=== PATIENT | female | born 1950 | race Caucasian/White ===

== ENCOUNTER 2020-01-09 16:05 | Inpatient (IN) ==
[2020-01-09] MEDS ORDERED: Furosemide 40 MG TABLET PO PRN (16:47)
[2020-01-09] MEDS ORDERED: INSULIN DEGLUDEC 80 UNIT SQ SCH (21:00)
[2020-01-09] MEDS: Nystatin POWDER 30 GM BOTTLE TP SCH (21:25)
[2020-01-09] MEDS: Pregabalin 75 MG CAPSULE PO SCH (21:25)
[2020-01-10] MEDS: Amoxicillin 500 MG CAPSULE PO SCH ×3 (00:26→17:12)
[2020-01-10] MEDS: hydrALAZINE 25 MG TABLET PO SCH ×3 (00:26→17:12)
[2020-01-10 06:43] LABS: Basophils # 0.1 K/mcL (0.0-0.2); Basophils % 0.6 %; Eosinophils # 1.2 K/mcL (0.0-0.6); Eosinophils % 11.2 %; Hematocrit 35.1 % (35.3-44.9); Hemoglobin 11.5 g/dL (11.5-15.4); Immature Granulocytes % 1.7 % (0-4); Lymphocytes # 1.9 K/mcL (0.6-4.6); Lymphocytes % 17.4 %; Mean Corpuscular HGB Conc 32.8 g/dL (31.6-35.5); Mean Corpuscular Hemoglobin 27.3 pg (28.0-33.3); Mean Corpuscular Volume 83.2 fL (83.0-100.0); Mean Platelet Volume 10.6 fL (9.4-12.4); Monocytes % 9.3 %; Neutrophils # 6.5 K/mcL (1.6-8.9); Platelet Count 253 K/mcL (140-400); Red Blood Count 4.22 M/mcL (3.82-4.97); Red Cell Distribution Width 15.3 % (11.5-14.5); Segmented Neutrophils % 59.8 %; White Blood Count 10.9 K/mcL (4.3-11.1)
[2020-01-10 07:09] LABS: Calcium 7.9 mg/dL (8.6-10.3); Potassium 3.5 mEq/L (3.5-5.1)
[2020-01-10] MEDS: Nystatin POWDER 30 GM BOTTLE TP SCH ×3 (09:16→21:50)
[2020-01-10] MEDS: levoFLOXacin 500 MG TABLET PO SCH (09:16)
[2020-01-10] MEDS: Pregabalin 75 MG CAPSULE PO SCH ×2 (09:17→17:22)
[2020-01-10] MEDS: Cholecalciferol (D-3) 1,000 UNIT (25MCG) TABLET PO SCH (09:18)
[2020-01-10] MEDS: amLODIPine 5 MG TABLET PO SCH (09:18)
[2020-01-10] MEDS: carvediloL 25 MG TABLET PO SCH ×2 (09:18→17:12)
[2020-01-10] MEDS: Aspirin Enteric Coated 81 MG Tablet PO SCH (09:18)
[2020-01-10] MEDS: Cyanocobalamin (B-12) 1,000 MCG TABLET PO SCH (09:19)
[2020-01-10] MEDS: Acetaminophen 325 MG TABLET PO PRN (17:12)
[2020-01-10] MEDS ORDERED: Insulin DETEMIR 100 UNIT/ML X5UNITS SQ SCH (21:00)
[2020-01-11] MEDS: Amoxicillin 500 MG CAPSULE PO SCH ×3 (01:31→17:22)
[2020-01-11] MEDS: hydrALAZINE 25 MG TABLET PO SCH ×3 (01:31→17:22)
[2020-01-11] MEDS: levoFLOXacin 500 MG TABLET PO SCH (09:17)
[2020-01-11] MEDS: Aspirin Enteric Coated 81 MG Tablet PO SCH (09:17)
[2020-01-11] MEDS: Cyanocobalamin (B-12) 1,000 MCG TABLET PO SCH (09:18)
[2020-01-11] MEDS: Cholecalciferol (D-3) 1,000 UNIT (25MCG) TABLET PO SCH (09:18)
[2020-01-11] MEDS: carvediloL 25 MG TABLET PO SCH ×2 (09:18→17:22)
[2020-01-11] MEDS: Pregabalin 75 MG CAPSULE PO SCH ×2 (09:19→17:22)
[2020-01-11] MEDS: amLODIPine 5 MG TABLET PO SCH (09:19)
[2020-01-11] MEDS: Nystatin POWDER 30 GM BOTTLE TP SCH ×3 (09:20→21:20)
[2020-01-11] MEDS ORDERED: *HR* Dextrose 50 % in Water (Vial) 50 ML VIAL IVP PRN (14:41)
[2020-01-11] MEDS ORDERED: Dextrose Gel 15 GM/37.5 ML TUBE PO PRN ×2 (14:41)
[2020-01-11] MEDS ORDERED: D5% in Water 1,000 ML IVC PRN (14:41)
[2020-01-11] MEDS: Insulin LISPRO 300 UNITS/3 ML VIAL SQ SCH ×2 (17:26→21:20)
[2020-01-11] MEDS: Insulin DETEMIR 100 UNIT/ML X5UNITS SQ SCH (21:22)
[2020-01-12] MEDS: hydrALAZINE 25 MG TABLET PO SCH ×4 (00:42→23:09)
[2020-01-12] MEDS: Amoxicillin 500 MG CAPSULE PO SCH ×4 (00:42→23:09)
[2020-01-12] MEDS ORDERED: Nitroglycerin 0.4 MG TAB.SUBL SL PRN (05:33)
[2020-01-12] MEDS ORDERED: Aspirin 325 MG TABLET PO ONE (06:36)
[2020-01-12] MEDS: Insulin LISPRO 300 UNITS/3 ML VIAL SQ SCH ×5 (08:28→19:58)
[2020-01-12] MEDS: Cholecalciferol (D-3) 1,000 UNIT (25MCG) TABLET PO SCH (08:31)
[2020-01-12] MEDS: levoFLOXacin 500 MG TABLET PO SCH (08:32)
[2020-01-12] MEDS: carvediloL 25 MG TABLET PO SCH ×2 (08:32→16:40)
[2020-01-12] MEDS: Aspirin Enteric Coated 81 MG Tablet PO SCH (08:32)
[2020-01-12] MEDS: Cyanocobalamin (B-12) 1,000 MCG TABLET PO SCH (08:32)
[2020-01-12] MEDS: amLODIPine 5 MG TABLET PO SCH (08:33)
[2020-01-12] MEDS: Nystatin POWDER 30 GM BOTTLE TP SCH ×3 (08:33→20:02)
[2020-01-12] MEDS: Pregabalin 75 MG CAPSULE PO SCH ×2 (08:33→16:58)
[2020-01-12] MEDS: Insulin DETEMIR 100 UNIT/ML X5UNITS SQ SCH ×2 (12:58→19:57)
[2020-01-12] MEDS: Isosorbide MONOnitrate (24 HR) 30 MG TAB.ER.24H PO SCH (18:51)
[2020-01-13] MEDS: amLODIPine 5 MG TABLET PO SCH (07:50)
[2020-01-13] MEDS: hydrALAZINE 25 MG TABLET PO SCH ×3 (07:50→23:14)
[2020-01-13] MEDS: Aspirin Enteric Coated 81 MG Tablet PO SCH (07:50)
[2020-01-13] MEDS: levoFLOXacin 500 MG TABLET PO SCH (07:50)
[2020-01-13] MEDS: Isosorbide MONOnitrate (24 HR) 30 MG TAB.ER.24H PO SCH (07:50)
[2020-01-13] MEDS: Cyanocobalamin (B-12) 1,000 MCG TABLET PO SCH (07:51)
[2020-01-13] MEDS: carvediloL 25 MG TABLET PO SCH ×2 (07:51→16:02)
[2020-01-13] MEDS: Pregabalin 75 MG CAPSULE PO SCH ×2 (07:51→17:31)
[2020-01-13] MEDS: Cholecalciferol (D-3) 1,000 UNIT (25MCG) TABLET PO SCH (07:51)
[2020-01-13] MEDS: Amoxicillin 500 MG CAPSULE PO SCH ×3 (07:51→23:14)
[2020-01-13] MEDS: Insulin LISPRO 300 UNITS/3 ML VIAL SQ SCH ×4 (07:52→20:30)
[2020-01-13] MEDS: Nystatin POWDER 30 GM BOTTLE TP SCH ×3 (08:02→20:32)
[2020-01-13] MEDS: Insulin DETEMIR 100 UNIT/ML X5UNITS SQ SCH ×2 (08:29→20:30)
[2020-01-13] MEDS ORDERED: Insulin DETEMIR 100 UNIT/ML X5UNITS SQ SCH (21:00)
[2020-01-14 07:23] LABS: Basophils # 0.1 K/mcL (0.0-0.2); Basophils % 0.6 %; Eosinophils # 0.6 K/mcL (0.0-0.6); Hematocrit 32.9 % (35.3-44.9); Hemoglobin 10.6 g/dL (11.5-15.4); Immature Granulocytes % 1.3 % (0-4); Lymphocytes # 2.3 K/mcL (0.6-4.6); Lymphocytes % 18.2 %; Mean Corpuscular HGB Conc 32.2 g/dL (31.6-35.5); Mean Corpuscular Hemoglobin 27.2 pg (28.0-33.3); Mean Corpuscular Volume 84.6 fL (83.0-100.0); Mean Platelet Volume 11.2 fL (9.4-12.4); Monocytes # 0.9 K/mcL (0.0-1.3); Monocytes % 7.1 %; Neutrophils # 8.5 K/mcL (1.6-8.9); Platelet Count 209 K/mcL (140-400); Red Blood Count 3.89 M/mcL (3.82-4.97); Red Cell Distribution Width 17.1 % (11.5-14.5); Segmented Neutrophils % 67.8 %; White Blood Count 12.5 K/mcL (4.3-11.1)
[2020-01-14] MEDS ORDERED: polyethylene glycoL 3350 17 GM POWD.PACK PO PRN (07:32)
[2020-01-14 07:45] LABS: Calcium 8.3 mg/dL (8.6-10.3); Potassium 4.4 mEq/L (3.5-5.1)
[2020-01-14] MEDS: Amoxicillin 500 MG CAPSULE PO SCH ×3 (08:16→23:25)
[2020-01-14] MEDS: levoFLOXacin 500 MG TABLET PO SCH (08:17)
[2020-01-14] MEDS: Cyanocobalamin (B-12) 1,000 MCG TABLET PO SCH (08:17)
[2020-01-14] MEDS: hydrALAZINE 25 MG TABLET PO SCH ×3 (08:17→23:25)
[2020-01-14] MEDS: Pregabalin 75 MG CAPSULE PO SCH ×2 (08:17→17:13)
[2020-01-14] MEDS: Aspirin Enteric Coated 81 MG Tablet PO SCH (08:17)
[2020-01-14] MEDS: amLODIPine 5 MG TABLET PO SCH (08:17)
[2020-01-14] MEDS: Isosorbide MONOnitrate (24 HR) 30 MG TAB.ER.24H PO SCH (08:17)
[2020-01-14] MEDS: Cholecalciferol (D-3) 1,000 UNIT (25MCG) TABLET PO SCH (08:18)
[2020-01-14] MEDS: carvediloL 25 MG TABLET PO SCH ×2 (08:18→17:13)
[2020-01-14] MEDS: Insulin LISPRO 300 UNITS/3 ML VIAL SQ SCH ×3 (08:18→16:38)
[2020-01-14] MEDS: Nystatin POWDER 30 GM BOTTLE TP SCH ×3 (08:20→20:12)
[2020-01-14 08:23] LABS: Platelet Clumps Few (Not Present); Platelet Estimate Normal (Normal)
[2020-01-14] MEDS: Insulin DETEMIR 100 UNIT/ML X5UNITS SQ SCH ×2 (08:23→20:13)
[2020-01-14] MEDS ORDERED: Lactulose Oral Soln 20 GM/30 ML UDC PO ONE (15:44)
[2020-01-14 16:08] LABS: Basophils # 0.1 K/mcL (0.0-0.2); Basophils % 0.5 %; Eosinophils # 0.6 K/mcL (0.0-0.6); Eosinophils % 4.4 %; Hematocrit 30.7 % (35.3-44.9); Hemoglobin 10.1 g/dL (11.5-15.4); Immature Granulocytes % 0.8 % (0-4); Lymphocytes % 16.5 %; Mean Corpuscular HGB Conc 32.9 g/dL (31.6-35.5); Mean Corpuscular Hemoglobin 27.5 pg (28.0-33.3); Mean Corpuscular Volume 83.7 fL (83.0-100.0); Mean Platelet Volume 10.1 fL (9.4-12.4); Monocytes # 0.9 K/mcL (0.0-1.3); Monocytes % 7.2 %; Platelet Count 328 K/mcL (140-400); Red Blood Count 3.67 M/mcL (3.82-4.97); Segmented Neutrophils % 70.6 %
[2020-01-14 16:18] LABS: Albumin 2.8 g/dL (3.5-5.7); Albumin/Globulin Ratio 1.1 (1.1-2.2); Bilirubin,Total 0.5 mg/dL (0.3-1.0); Calcium 8.2 mg/dL (8.6-10.3); Globulin 2.6 g/dL (2.4-3.5); Lymphocytes # 2.2 K/mcL (0.6-4.6); Neutrophils # 9.2 K/mcL (1.6-8.9); Potassium 4.6 mEq/L (3.5-5.1); Total Protein 5.4 g/dL (6.4-8.9)
[2020-01-14 16:29] LABS: Bilirubin,Urine Negative (Negative); Blood,Urine Small (Negative); Clarity,Urine Slightly Cloudy (Clear); Glucose,Urine (UA) >=1000 mg/dL (Normal); Ketones,Urine Negative (Negative); Leukocyte Esterase,Urine Negative (Negative); Nitrite,Urine Negative (Negative); Protein,Urine 100 mg/dL (Neg-Trace); Urobilinogen,Urine Normal (Normal)
[2020-01-14 16:49] LABS: Color,Urine Light Yellow (Yellow)
[2020-01-14 16:52] LABS: Bacteria,Urine Few per hpf (None-Few); Granular Casts,Urine Few per lpf (None Seen); Mucus,Urine Few per lpf (None-Few); Squamous Epithelial Cell,Urine Few per hpf (None-Few)
[2020-01-14] MEDS: cephALEXin 250 MG CAPSULE PO SCH ×2 (17:53→20:58)
[2020-01-15 07:19] LABS: Basophils # 0.1 K/mcL (0.0-0.2); Basophils % 0.5 %; Eosinophils # 0.5 K/mcL (0.0-0.6); Eosinophils % 3.8 %; Hematocrit 30.9 % (35.3-44.9); Immature Granulocytes % 0.6 % (0-4); Lymphocytes # 1.9 K/mcL (0.6-4.6); Lymphocytes % 15.6 %; Mean Corpuscular HGB Conc 32.4 g/dL (31.6-35.5); Mean Corpuscular Hemoglobin 27.4 pg (28.0-33.3); Mean Corpuscular Volume 84.7 fL (83.0-100.0); Mean Platelet Volume 10.5 fL (9.4-12.4); Monocytes # 0.8 K/mcL (0.0-1.3); Monocytes % 6.7 %; Platelet Count 306 K/mcL (140-400); Red Blood Count 3.65 M/mcL (3.82-4.97); Red Cell Distribution Width 17.4 % (11.5-14.5); Segmented Neutrophils % 72.8 %
[2020-01-15 07:29] LABS: Calcium 8.4 mg/dL (8.6-10.3); Potassium 4.5 mEq/L (3.5-5.1)
[2020-01-15 07:30] LABS: Neutrophils # 8.7 K/mcL (1.6-8.9)
[2020-01-15] MEDS: Amoxicillin 500 MG CAPSULE PO SCH ×3 (08:11→22:56)
[2020-01-15] MEDS: Pregabalin 75 MG CAPSULE PO SCH ×2 (08:11→16:43)
[2020-01-15] MEDS: cephALEXin 250 MG CAPSULE PO SCH ×3 (08:11→20:39)
[2020-01-15] MEDS: carvediloL 25 MG TABLET PO SCH ×2 (08:11→16:44)
[2020-01-15] MEDS: levoFLOXacin 500 MG TABLET PO SCH (08:11)
[2020-01-15] MEDS: Cholecalciferol (D-3) 1,000 UNIT (25MCG) TABLET PO SCH (08:12)
[2020-01-15] MEDS: amLODIPine 5 MG TABLET PO SCH (08:12)
[2020-01-15] MEDS: Aspirin Enteric Coated 81 MG Tablet PO SCH (08:12)
[2020-01-15] MEDS: Nystatin POWDER 30 GM BOTTLE TP SCH ×3 (08:12→20:40)
[2020-01-15] MEDS: Isosorbide MONOnitrate (24 HR) 30 MG TAB.ER.24H PO SCH (08:12)
[2020-01-15] MEDS: Cyanocobalamin (B-12) 1,000 MCG TABLET PO SCH (08:12)
[2020-01-15] MEDS: Insulin DETEMIR 100 UNIT/ML X5UNITS SQ SCH ×2 (08:17→21:08)
[2020-01-15] MEDS: Insulin LISPRO 300 UNITS/3 ML VIAL SQ SCH ×4 (08:17→21:08)
[2020-01-15] MEDS: hydrALAZINE 25 MG TABLET PO SCH ×3 (08:18→22:56)
[2020-01-15] MEDS ORDERED: Lactulose Oral Soln 20 GM/30 ML UDC PO PRN (08:37)
[2020-01-16] MEDS: Acetaminophen 325 MG TABLET PO PRN (03:31)
[2020-01-16] MEDS: Aspirin Enteric Coated 81 MG Tablet PO SCH (08:29)
[2020-01-16] MEDS: Isosorbide MONOnitrate (24 HR) 30 MG TAB.ER.24H PO SCH (08:30)
[2020-01-16] MEDS: hydrALAZINE 25 MG TABLET PO SCH ×3 (08:30→23:42)
[2020-01-16] MEDS: Amoxicillin 500 MG CAPSULE PO SCH ×3 (08:30→23:42)
[2020-01-16] MEDS: levoFLOXacin 500 MG TABLET PO SCH (08:30)
[2020-01-16] MEDS: carvediloL 25 MG TABLET PO SCH ×2 (08:30→17:15)
[2020-01-16] MEDS: Cholecalciferol (D-3) 1,000 UNIT (25MCG) TABLET PO SCH (08:31)
[2020-01-16] MEDS: amLODIPine 5 MG TABLET PO SCH (08:31)
[2020-01-16] MEDS: Pregabalin 75 MG CAPSULE PO SCH ×2 (08:31→17:16)
[2020-01-16] MEDS: cephALEXin 250 MG CAPSULE PO SCH ×2 (08:32→15:21)
[2020-01-16] MEDS: Cyanocobalamin (B-12) 1,000 MCG TABLET PO SCH (08:32)
[2020-01-16] MEDS: Insulin LISPRO 300 UNITS/3 ML VIAL SQ SCH ×4 (08:34→19:54)
[2020-01-16] MEDS: Insulin DETEMIR 100 UNIT/ML X5UNITS SQ SCH ×2 (08:35→19:57)
[2020-01-16] MEDS: Nystatin POWDER 30 GM BOTTLE TP SCH ×3 (11:24→20:01)
[2020-01-17] MEDS: Insulin LISPRO 300 UNITS/3 ML VIAL SQ SCH ×4 (08:29→20:12)
[2020-01-17] MEDS: Cholecalciferol (D-3) 1,000 UNIT (25MCG) TABLET PO SCH (08:30)
[2020-01-17] MEDS: levoFLOXacin 500 MG TABLET PO SCH (08:30)
[2020-01-17] MEDS: Pregabalin 75 MG CAPSULE PO SCH ×2 (08:30→17:44)
[2020-01-17] MEDS: Aspirin Enteric Coated 81 MG Tablet PO SCH (08:30)
[2020-01-17] MEDS: carvediloL 25 MG TABLET PO SCH ×2 (08:30→15:45)
[2020-01-17] MEDS: amLODIPine 5 MG TABLET PO SCH (08:30)
[2020-01-17] MEDS: Isosorbide MONOnitrate (24 HR) 30 MG TAB.ER.24H PO SCH (08:30)
[2020-01-17] MEDS: hydrALAZINE 25 MG TABLET PO SCH ×2 (08:30→15:45)
[2020-01-17] MEDS: Cyanocobalamin (B-12) 1,000 MCG TABLET PO SCH (08:31)
[2020-01-17] MEDS: Insulin DETEMIR 100 UNIT/ML X5UNITS SQ SCH ×2 (08:39→20:08)
[2020-01-17] MEDS: Nystatin POWDER 30 GM BOTTLE TP SCH ×3 (08:40→20:07)
[2020-01-17] MEDS: Sennosides/Docusate Sodium TABLET PO SCH ×2 (15:44→20:07)
[2020-01-17 15:49] LABS: Hematocrit 31.5 % (35.3-44.9); Hemoglobin 10.2 g/dL (11.5-15.4); Mean Corpuscular HGB Conc 32.4 g/dL (31.6-35.5); Mean Corpuscular Hemoglobin 27.6 pg (28.0-33.3); Mean Corpuscular Volume 85.4 fL (83.0-100.0); Mean Platelet Volume 10.9 fL (9.4-12.4); Platelet Count 180 K/mcL (140-400); Red Blood Count 3.69 M/mcL (3.82-4.97); Red Cell Distribution Width 17.4 % (11.5-14.5); White Blood Count 10.4 K/mcL (4.3-11.1)
[2020-01-17 16:13] LABS: Albumin 2.9 g/dL (3.5-5.7); Albumin/Globulin Ratio 1.1 (1.1-2.2); Bilirubin,Total 0.4 mg/dL (0.3-1.0); Calcium 8.5 mg/dL (8.6-10.3); Globulin 2.7 g/dL (2.4-3.5); Potassium 5.3 mEq/L (3.5-5.1); Total Protein 5.6 g/dL (6.4-8.9)
[2020-01-17] MEDS ORDERED: *HR* LORazepam 0.5 MG TABLET PO ONE (21:41)
[2020-01-18] MEDS: hydrALAZINE 25 MG TABLET PO SCH ×4 (01:31→23:42)
[2020-01-18] MEDS: Insulin LISPRO 300 UNITS/3 ML VIAL SQ SCH ×4 (09:02→20:39)
[2020-01-18] MEDS: Insulin DETEMIR 100 UNIT/ML X5UNITS SQ SCH ×2 (09:03→20:35)
[2020-01-18] MEDS: Aspirin Enteric Coated 81 MG Tablet PO SCH (09:04)
[2020-01-18] MEDS: Cholecalciferol (D-3) 1,000 UNIT (25MCG) TABLET PO SCH (09:04)
[2020-01-18] MEDS: amLODIPine 5 MG TABLET PO SCH (09:04)
[2020-01-18] MEDS: Sennosides/Docusate Sodium TABLET PO SCH ×2 (09:04→20:34)
[2020-01-18] MEDS: Pregabalin 75 MG CAPSULE PO SCH ×2 (09:04→18:28)
[2020-01-18] MEDS: carvediloL 25 MG TABLET PO SCH ×2 (09:04→16:08)
[2020-01-18] MEDS: Isosorbide MONOnitrate (24 HR) 30 MG TAB.ER.24H PO SCH (09:04)
[2020-01-18] MEDS: Cyanocobalamin (B-12) 1,000 MCG TABLET PO SCH (09:05)
[2020-01-18] MEDS: Nystatin POWDER 30 GM BOTTLE TP SCH ×3 (09:12→20:35)
[2020-01-19] MEDS: Insulin LISPRO 300 UNITS/3 ML VIAL SQ SCH ×4 (09:43→20:41)
[2020-01-19] MEDS: Insulin DETEMIR 100 UNIT/ML X5UNITS SQ SCH ×2 (09:43→20:41)
[2020-01-19] MEDS: Cyanocobalamin (B-12) 1,000 MCG TABLET PO SCH (09:44)
[2020-01-19] MEDS: Cholecalciferol (D-3) 1,000 UNIT (25MCG) TABLET PO SCH (09:44)
[2020-01-19] MEDS: hydrALAZINE 25 MG TABLET PO SCH ×2 (09:44→16:57)
[2020-01-19] MEDS: amLODIPine 5 MG TABLET PO SCH (09:44)
[2020-01-19] MEDS: carvediloL 25 MG TABLET PO SCH ×2 (09:44→16:57)
[2020-01-19] MEDS: Sennosides/Docusate Sodium TABLET PO SCH ×2 (09:44→20:40)
[2020-01-19] MEDS: Aspirin Enteric Coated 81 MG Tablet PO SCH (09:44)
[2020-01-19] MEDS: Isosorbide MONOnitrate (24 HR) 60 MG TAB.ER.24H PO SCH (09:44)
[2020-01-19] MEDS: Nystatin POWDER 30 GM BOTTLE TP SCH ×3 (09:45→20:46)
[2020-01-19] MEDS: Pregabalin 75 MG CAPSULE PO SCH ×2 (09:45→17:00)
[2020-01-20] MEDS: Acetaminophen 325 MG TABLET PO PRN (01:49)
[2020-01-20] MEDS: *HR* LORazepam 0.5 MG TABLET PO PRN (01:50)
[2020-01-20] MEDS: Cyanocobalamin (B-12) 1,000 MCG TABLET PO SCH (10:16)
[2020-01-20] MEDS: Pregabalin 75 MG CAPSULE PO SCH ×2 (10:16→16:19)
[2020-01-20] MEDS: carvediloL 25 MG TABLET PO SCH ×2 (10:16→16:19)
[2020-01-20] MEDS: Sennosides/Docusate Sodium TABLET PO SCH ×2 (10:16→21:14)
[2020-01-20] MEDS: Aspirin Enteric Coated 81 MG Tablet PO SCH (10:16)
[2020-01-20] MEDS: hydrALAZINE 25 MG TABLET PO SCH ×4 (10:16→23:57)
[2020-01-20] MEDS: Isosorbide MONOnitrate (24 HR) 60 MG TAB.ER.24H PO SCH (10:16)
[2020-01-20] MEDS: Cholecalciferol (D-3) 1,000 UNIT (25MCG) TABLET PO SCH (10:17)
[2020-01-20] MEDS: Insulin LISPRO 300 UNITS/3 ML VIAL SQ SCH ×4 (10:17→21:20)
[2020-01-20] MEDS: amLODIPine 5 MG TABLET PO SCH (10:17)
[2020-01-20] MEDS: Insulin DETEMIR 100 UNIT/ML X5UNITS SQ SCH ×2 (10:17→21:15)
[2020-01-20] MEDS: Nystatin POWDER 30 GM BOTTLE TP SCH ×3 (10:18→21:31)
[2020-01-20] MEDS: Famotidine 20 MG TABLET PO SCH (21:14)
[2020-01-20] MEDS: Melatonin 3 MG TABLET PO PRN (23:47)
[2020-01-21] MEDS: Insulin LISPRO 300 UNITS/3 ML VIAL SQ SCH ×4 (07:52→20:14)
[2020-01-21] MEDS: Isosorbide MONOnitrate (24 HR) 60 MG TAB.ER.24H PO SCH (09:54)
[2020-01-21] MEDS: Sennosides/Docusate Sodium TABLET PO SCH ×2 (09:54→20:15)
[2020-01-21] MEDS: Cholecalciferol (D-3) 1,000 UNIT (25MCG) TABLET PO SCH (09:55)
[2020-01-21] MEDS: Pregabalin 75 MG CAPSULE PO SCH ×2 (09:55→17:05)
[2020-01-21] MEDS: Famotidine 20 MG TABLET PO SCH ×2 (09:55→20:15)
[2020-01-21] MEDS: carvediloL 25 MG TABLET PO SCH ×2 (09:55→17:05)
[2020-01-21] MEDS: Aspirin Enteric Coated 81 MG Tablet PO SCH (09:55)
[2020-01-21] MEDS: hydrALAZINE 25 MG TABLET PO SCH ×2 (09:55→17:05)
[2020-01-21] MEDS: amLODIPine 5 MG TABLET PO SCH (09:55)
[2020-01-21] MEDS: Insulin DETEMIR 100 UNIT/ML X5UNITS SQ SCH ×2 (09:55→20:15)
[2020-01-21] MEDS: Cyanocobalamin (B-12) 1,000 MCG TABLET PO SCH (09:55)
[2020-01-21] MEDS: Nystatin POWDER 30 GM BOTTLE TP SCH ×3 (09:56→20:13)
[2020-01-22] MEDS: hydrALAZINE 25 MG TABLET PO SCH ×3 (00:28→16:52)
[2020-01-22] MEDS: Insulin DETEMIR 100 UNIT/ML X5UNITS SQ SCH ×2 (10:03→22:49)
[2020-01-22] MEDS: carvediloL 25 MG TABLET PO SCH ×2 (10:04→16:52)
[2020-01-22] MEDS: Isosorbide MONOnitrate (24 HR) 60 MG TAB.ER.24H PO SCH (10:04)
[2020-01-22] MEDS: Cholecalciferol (D-3) 1,000 UNIT (25MCG) TABLET PO SCH (10:04)
[2020-01-22] MEDS: Sennosides/Docusate Sodium TABLET PO SCH ×2 (10:04→22:47)
[2020-01-22] MEDS: Pregabalin 75 MG CAPSULE PO SCH ×2 (10:04→16:52)
[2020-01-22] MEDS: Aspirin Enteric Coated 81 MG Tablet PO SCH (10:04)
[2020-01-22] MEDS: Cyanocobalamin (B-12) 1,000 MCG TABLET PO SCH (10:04)
[2020-01-22] MEDS: amLODIPine 5 MG TABLET PO SCH (10:05)
[2020-01-22] MEDS: Nystatin POWDER 30 GM BOTTLE TP SCH ×3 (10:05→22:48)
[2020-01-22] MEDS: Famotidine 20 MG TABLET PO SCH ×2 (10:05→22:47)
[2020-01-22] MEDS: Insulin LISPRO 300 UNITS/3 ML VIAL SQ SCH ×4 (10:05→22:49)
[2020-01-23] MEDS: hydrALAZINE 25 MG TABLET PO SCH ×3 (01:01→17:11)
[2020-01-23] MEDS: Pregabalin 75 MG CAPSULE PO SCH ×2 (09:45→17:11)
[2020-01-23] MEDS: Sennosides/Docusate Sodium TABLET PO SCH ×2 (09:45→21:06)
[2020-01-23] MEDS: Insulin LISPRO 300 UNITS/3 ML VIAL SQ SCH ×4 (09:45→20:35)
[2020-01-23] MEDS: Insulin DETEMIR 100 UNIT/ML X5UNITS SQ SCH ×2 (09:46→21:06)
[2020-01-23] MEDS: Isosorbide MONOnitrate (24 HR) 60 MG TAB.ER.24H PO SCH (09:46)
[2020-01-23] MEDS: Cyanocobalamin (B-12) 1,000 MCG TABLET PO SCH (09:46)
[2020-01-23] MEDS: Aspirin Enteric Coated 81 MG Tablet PO SCH (09:46)
[2020-01-23] MEDS: Famotidine 20 MG TABLET PO SCH (09:46)
[2020-01-23] MEDS: carvediloL 25 MG TABLET PO SCH ×2 (09:46→17:11)
[2020-01-23] MEDS: Cholecalciferol (D-3) 1,000 UNIT (25MCG) TABLET PO SCH (09:46)
[2020-01-23] MEDS: amLODIPine 5 MG TABLET PO SCH (09:46)
[2020-01-23] MEDS: Nystatin POWDER 30 GM BOTTLE TP SCH ×3 (09:47→21:06)
[2020-01-23] MEDS ORDERED: Pregabalin 75 MG CAPSULE PO SCH (18:00)
[2020-01-24] MEDS: hydrALAZINE 25 MG TABLET PO SCH ×3 (00:03→17:33)
[2020-01-24] MEDS: Insulin DETEMIR 100 UNIT/ML X5UNITS SQ SCH ×2 (09:44→20:08)
[2020-01-24] MEDS: Isosorbide MONOnitrate (24 HR) 60 MG TAB.ER.24H PO SCH (09:45)
[2020-01-24] MEDS: Famotidine 20 MG TABLET PO SCH (09:45)
[2020-01-24] MEDS: carvediloL 25 MG TABLET PO SCH ×2 (09:45→17:30)
[2020-01-24] MEDS: Cyanocobalamin (B-12) 1,000 MCG TABLET PO SCH (09:45)
[2020-01-24] MEDS: amLODIPine 5 MG TABLET PO SCH (09:45)
[2020-01-24] MEDS: Aspirin Enteric Coated 81 MG Tablet PO SCH (09:45)
[2020-01-24] MEDS: Cholecalciferol (D-3) 1,000 UNIT (25MCG) TABLET PO SCH (09:45)
[2020-01-24] MEDS: Sennosides/Docusate Sodium TABLET PO SCH ×2 (09:45→20:07)
[2020-01-24] MEDS: Nystatin POWDER 30 GM BOTTLE TP SCH ×3 (09:48→20:08)
[2020-01-24] MEDS: Insulin LISPRO 300 UNITS/3 ML VIAL SQ SCH ×4 (10:59→20:12)
[2020-01-24] MEDS: Pregabalin 75 MG CAPSULE PO SCH ×2 (11:06→17:30)
[2020-01-25] MEDS: hydrALAZINE 25 MG TABLET PO SCH ×3 (01:11→17:23)
[2020-01-25 07:06] LABS: Basophils # 0.1 K/mcL (0.0-0.2); Basophils % 0.6 %; Eosinophils # 0.8 K/mcL (0.0-0.6); Eosinophils % 10.1 %; Hematocrit 28.6 % (35.3-44.9); Hemoglobin 9.4 g/dL (11.5-15.4); Immature Granulocytes % 0.1 % (0-4); Lymphocytes % 24.9 %; Mean Corpuscular HGB Conc 32.9 g/dL (31.6-35.5); Mean Corpuscular Volume 85.1 fL (83.0-100.0); Monocytes # 0.5 K/mcL (0.0-1.3); Monocytes % 5.8 %; Neutrophils # 4.7 K/mcL (1.6-8.9); Platelet Count 197 K/mcL (140-400); Red Blood Count 3.36 M/mcL (3.82-4.97); Segmented Neutrophils % 58.5 %
[2020-01-25 07:30] LABS: Calcium 8.6 mg/dL (8.6-10.3); Potassium 4.5 mEq/L (3.5-5.1)
[2020-01-25] MEDS: Insulin DETEMIR 100 UNIT/ML X5UNITS SQ SCH ×2 (08:17→20:22)
[2020-01-25] MEDS ORDERED: Pregabalin 75 MG CAPSULE PO SCH (09:00)
[2020-01-25] MEDS: Cholecalciferol (D-3) 1,000 UNIT (25MCG) TABLET PO SCH (09:01)
[2020-01-25] MEDS: Aspirin Enteric Coated 81 MG Tablet PO SCH (09:02)
[2020-01-25] MEDS: Famotidine 20 MG TABLET PO SCH (09:02)
[2020-01-25] MEDS: Pregabalin 75 MG CAPSULE PO SCH ×2 (09:02→17:23)
[2020-01-25] MEDS: amLODIPine 5 MG TABLET PO SCH (09:02)
[2020-01-25] MEDS: carvediloL 25 MG TABLET PO SCH ×2 (09:02→17:23)
[2020-01-25] MEDS: Sennosides/Docusate Sodium TABLET PO SCH ×2 (09:03→20:21)
[2020-01-25] MEDS: Isosorbide MONOnitrate (24 HR) 60 MG TAB.ER.24H PO SCH (09:04)
[2020-01-25] MEDS: Nystatin POWDER 30 GM BOTTLE TP SCH ×3 (09:04→20:23)
[2020-01-25] MEDS: Cyanocobalamin (B-12) 1,000 MCG TABLET PO SCH (09:05)
[2020-01-25] MEDS: Insulin LISPRO 300 UNITS/3 ML VIAL SQ SCH ×4 (09:10→20:43)
[2020-01-26] MEDS: hydrALAZINE 25 MG TABLET PO SCH ×3 (00:33→17:53)
[2020-01-26] MEDS: Pregabalin 75 MG CAPSULE PO SCH ×3 (06:01→17:53)
[2020-01-26] MEDS: Famotidine 20 MG TABLET PO SCH (07:45)
[2020-01-26] MEDS: carvediloL 25 MG TABLET PO SCH ×2 (07:46→17:53)
[2020-01-26] MEDS: Insulin LISPRO 300 UNITS/3 ML VIAL SQ SCH ×2 (07:47→20:49)
[2020-01-26] MEDS: Aspirin Enteric Coated 81 MG Tablet PO SCH (09:35)
[2020-01-26] MEDS: Insulin DETEMIR 100 UNIT/ML X5UNITS SQ SCH ×2 (09:35→20:48)
[2020-01-26] MEDS: Sennosides/Docusate Sodium TABLET PO SCH ×2 (09:36→20:48)
[2020-01-26] MEDS: Cholecalciferol (D-3) 1,000 UNIT (25MCG) TABLET PO SCH (09:36)
[2020-01-26] MEDS: amLODIPine 5 MG TABLET PO SCH (09:36)
[2020-01-26] MEDS: Isosorbide MONOnitrate (24 HR) 60 MG TAB.ER.24H PO SCH (09:36)
[2020-01-26] MEDS: Nystatin POWDER 30 GM BOTTLE TP SCH ×2 (09:37→20:48)
[2020-01-26] MEDS: Cyanocobalamin (B-12) 1,000 MCG TABLET PO SCH (09:39)
[2020-01-27] MEDS: hydrALAZINE 25 MG TABLET PO SCH ×4 (00:05→23:22)
[2020-01-27] MEDS: Insulin LISPRO 300 UNITS/3 ML VIAL SQ SCH ×5 (04:34→23:21)
[2020-01-27] MEDS: Nystatin POWDER 30 GM BOTTLE TP SCH ×4 (04:34→20:27)
[2020-01-27] MEDS: Aspirin Enteric Coated 81 MG Tablet PO SCH (08:16)
[2020-01-27] MEDS: Cyanocobalamin (B-12) 1,000 MCG TABLET PO SCH (08:16)
[2020-01-27] MEDS: Pregabalin 75 MG CAPSULE PO SCH ×2 (08:16→18:22)
[2020-01-27] MEDS: Sennosides/Docusate Sodium TABLET PO SCH ×2 (08:16→20:26)
[2020-01-27] MEDS: Famotidine 20 MG TABLET PO SCH (08:16)
[2020-01-27] MEDS: carvediloL 25 MG TABLET PO SCH ×2 (08:17→18:22)
[2020-01-27] MEDS: Isosorbide MONOnitrate (24 HR) 60 MG TAB.ER.24H PO SCH (08:17)
[2020-01-27] MEDS: Cholecalciferol (D-3) 1,000 UNIT (25MCG) TABLET PO SCH (08:17)
[2020-01-27] MEDS: amLODIPine 5 MG TABLET PO SCH (08:17)
[2020-01-27] MEDS: Insulin DETEMIR 100 UNIT/ML X5UNITS SQ SCH ×2 (12:11→20:27)
[2020-01-28] MEDS: *HR* LORazepam 0.5 MG TABLET PO PRN ×2 (02:20→21:18)
[2020-01-28] MEDS: Acetaminophen 325 MG TABLET PO PRN ×2 (02:20→21:18)
[2020-01-28] MEDS: Insulin LISPRO 300 UNITS/3 ML VIAL SQ SCH ×4 (07:39→21:19)
[2020-01-28] MEDS: Pregabalin 75 MG CAPSULE PO SCH ×2 (08:59→17:31)
[2020-01-28] MEDS: Aspirin Enteric Coated 81 MG Tablet PO SCH (08:59)
[2020-01-28] MEDS: Cholecalciferol (D-3) 1,000 UNIT (25MCG) TABLET PO SCH (08:59)
[2020-01-28] MEDS: Famotidine 20 MG TABLET PO SCH (08:59)
[2020-01-28] MEDS: carvediloL 25 MG TABLET PO SCH ×2 (09:00→17:31)
[2020-01-28] MEDS: Sennosides/Docusate Sodium TABLET PO SCH ×2 (09:00→21:18)
[2020-01-28] MEDS: hydrALAZINE 25 MG TABLET PO SCH ×2 (09:00→17:31)
[2020-01-28] MEDS: Isosorbide MONOnitrate (24 HR) 60 MG TAB.ER.24H PO SCH (09:00)
[2020-01-28] MEDS: Cyanocobalamin (B-12) 1,000 MCG TABLET PO SCH (09:00)
[2020-01-28] MEDS: amLODIPine 5 MG TABLET PO SCH (09:00)
[2020-01-28] MEDS: Nystatin POWDER 30 GM BOTTLE TP SCH ×3 (09:09→21:19)
[2020-01-28] MEDS: Insulin DETEMIR 100 UNIT/ML X5UNITS SQ SCH ×2 (09:10→21:19)
[2020-01-29] MEDS: hydrALAZINE 25 MG TABLET PO SCH ×3 (00:31→16:41)
[2020-01-29] MEDS: Insulin LISPRO 300 UNITS/3 ML VIAL SQ SCH ×4 (09:50→21:24)
[2020-01-29] MEDS: carvediloL 25 MG TABLET PO SCH ×2 (10:37→16:41)
[2020-01-29] MEDS: Isosorbide MONOnitrate (24 HR) 60 MG TAB.ER.24H PO SCH (10:37)
[2020-01-29] MEDS: Famotidine 20 MG TABLET PO SCH (10:37)
[2020-01-29] MEDS: Pregabalin 75 MG CAPSULE PO SCH ×2 (10:37→16:41)
[2020-01-29] MEDS: Cholecalciferol (D-3) 1,000 UNIT (25MCG) TABLET PO SCH (10:37)
[2020-01-29] MEDS: Aspirin Enteric Coated 81 MG Tablet PO SCH (10:37)
[2020-01-29] MEDS: Cyanocobalamin (B-12) 1,000 MCG TABLET PO SCH (10:38)
[2020-01-29] MEDS: Sennosides/Docusate Sodium TABLET PO SCH ×2 (10:38→21:15)
[2020-01-29] MEDS: amLODIPine 5 MG TABLET PO SCH (10:38)
[2020-01-29] MEDS: Insulin DETEMIR 100 UNIT/ML X5UNITS SQ SCH ×2 (10:39→21:21)
[2020-01-29] MEDS: Nystatin POWDER 30 GM BOTTLE TP SCH ×3 (10:44→21:16)
[2020-01-30] MEDS: hydrALAZINE 25 MG TABLET PO SCH ×3 (00:54→16:22)
[2020-01-30] MEDS: Insulin LISPRO 300 UNITS/3 ML VIAL SQ SCH ×4 (07:26→20:54)
[2020-01-30] MEDS: carvediloL 25 MG TABLET PO SCH ×2 (07:37→16:22)
[2020-01-30] MEDS: Famotidine 20 MG TABLET PO SCH (07:38)
[2020-01-30] MEDS: amLODIPine 5 MG TABLET PO SCH (08:28)
[2020-01-30] MEDS: Cyanocobalamin (B-12) 1,000 MCG TABLET PO SCH (08:28)
[2020-01-30] MEDS: Pregabalin 75 MG CAPSULE PO SCH ×2 (08:28→17:21)
[2020-01-30] MEDS: Isosorbide MONOnitrate (24 HR) 60 MG TAB.ER.24H PO SCH (08:28)
[2020-01-30] MEDS: Cholecalciferol (D-3) 1,000 UNIT (25MCG) TABLET PO SCH (08:29)
[2020-01-30] MEDS: Sennosides/Docusate Sodium TABLET PO SCH ×2 (08:30→20:53)
[2020-01-30] MEDS: Aspirin Enteric Coated 81 MG Tablet PO SCH (08:30)
[2020-01-30] MEDS: Insulin DETEMIR 100 UNIT/ML X5UNITS SQ SCH ×2 (08:33→20:53)
[2020-01-30] MEDS: Nystatin POWDER 30 GM BOTTLE TP SCH ×3 (08:33→20:52)
[2020-01-30] MEDS: Acetaminophen 325 MG TABLET PO PRN (21:01)
[2020-01-30] MEDS: Melatonin 3 MG TABLET PO PRN (21:02)
[2020-01-31] MEDS: hydrALAZINE 25 MG TABLET PO SCH ×3 (00:13→16:23)
[2020-01-31] MEDS: Insulin LISPRO 300 UNITS/3 ML VIAL SQ SCH ×4 (07:40→20:57)
[2020-01-31] MEDS: amLODIPine 5 MG TABLET PO SCH (08:10)
[2020-01-31] MEDS: Cholecalciferol (D-3) 1,000 UNIT (25MCG) TABLET PO SCH (08:10)
[2020-01-31] MEDS: Famotidine 20 MG TABLET PO SCH (08:11)
[2020-01-31] MEDS: Sennosides/Docusate Sodium TABLET PO SCH ×2 (08:11→20:57)
[2020-01-31] MEDS: Aspirin Enteric Coated 81 MG Tablet PO SCH (08:11)
[2020-01-31] MEDS: Cyanocobalamin (B-12) 1,000 MCG TABLET PO SCH (08:12)
[2020-01-31] MEDS: Pregabalin 75 MG CAPSULE PO SCH ×2 (08:12→17:50)
[2020-01-31] MEDS: carvediloL 25 MG TABLET PO SCH ×2 (08:13→16:23)
[2020-01-31] MEDS: Isosorbide MONOnitrate (24 HR) 60 MG TAB.ER.24H PO SCH (08:13)
[2020-01-31] MEDS: Nystatin POWDER 30 GM BOTTLE TP SCH ×3 (08:19→20:56)
[2020-01-31] MEDS: Insulin DETEMIR 100 UNIT/ML X5UNITS SQ SCH ×2 (09:52→20:57)
[2020-02-01] MEDS: hydrALAZINE 25 MG TABLET PO SCH ×4 (01:16→23:09)
[2020-02-01] MEDS: Insulin LISPRO 300 UNITS/3 ML VIAL SQ SCH ×4 (08:27→20:14)
[2020-02-01] MEDS: Sennosides/Docusate Sodium TABLET PO SCH ×2 (08:28→20:10)
[2020-02-01] MEDS: Cholecalciferol (D-3) 1,000 UNIT (25MCG) TABLET PO SCH (08:28)
[2020-02-01] MEDS: amLODIPine 5 MG TABLET PO SCH (08:28)
[2020-02-01] MEDS: Famotidine 20 MG TABLET PO SCH (08:28)
[2020-02-01] MEDS: Pregabalin 75 MG CAPSULE PO SCH ×2 (08:28→17:07)
[2020-02-01] MEDS: Isosorbide MONOnitrate (24 HR) 60 MG TAB.ER.24H PO SCH (08:28)
[2020-02-01] MEDS: Aspirin Enteric Coated 81 MG Tablet PO SCH (08:29)
[2020-02-01] MEDS: carvediloL 25 MG TABLET PO SCH ×2 (08:29→17:07)
[2020-02-01] MEDS: Nystatin POWDER 30 GM BOTTLE TP SCH ×3 (08:29→20:11)
[2020-02-01] MEDS: Cyanocobalamin (B-12) 1,000 MCG TABLET PO SCH (08:29)
[2020-02-01] MEDS: Insulin DETEMIR 100 UNIT/ML X5UNITS SQ SCH ×2 (08:30→20:13)
[2020-02-02] MEDS: hydrALAZINE 25 MG TABLET PO SCH ×3 (07:41→23:54)
[2020-02-02] MEDS: carvediloL 25 MG TABLET PO SCH ×2 (07:41→16:24)
[2020-02-02] MEDS: Pregabalin 75 MG CAPSULE PO SCH ×2 (07:41→16:24)
[2020-02-02] MEDS: Aspirin Enteric Coated 81 MG Tablet PO SCH (07:41)
[2020-02-02] MEDS: amLODIPine 5 MG TABLET PO SCH (07:41)
[2020-02-02] MEDS: Famotidine 20 MG TABLET PO SCH (07:41)
[2020-02-02] MEDS: Cyanocobalamin (B-12) 1,000 MCG TABLET PO SCH (07:42)
[2020-02-02] MEDS: Isosorbide MONOnitrate (24 HR) 60 MG TAB.ER.24H PO SCH (07:42)
[2020-02-02] MEDS: Cholecalciferol (D-3) 1,000 UNIT (25MCG) TABLET PO SCH (07:42)
[2020-02-02] MEDS: Sennosides/Docusate Sodium TABLET PO SCH ×2 (07:42→20:05)
[2020-02-02] MEDS: Nystatin POWDER 30 GM BOTTLE TP SCH ×3 (07:43→20:06)
[2020-02-02] MEDS: Insulin LISPRO 300 UNITS/3 ML VIAL SQ SCH ×4 (07:48→20:17)
[2020-02-02] MEDS: Insulin DETEMIR 100 UNIT/ML X5UNITS SQ SCH ×2 (09:01→20:17)
[2020-02-02] MEDS ORDERED: Ondansetron ODT 4 MG TAB.RAPDIS SL PRN (10:59)
[2020-02-03] MEDS: Cholecalciferol (D-3) 1,000 UNIT (25MCG) TABLET PO SCH (07:31)
[2020-02-03] MEDS: Isosorbide MONOnitrate (24 HR) 60 MG TAB.ER.24H PO SCH (07:32)
[2020-02-03] MEDS: Famotidine 20 MG TABLET PO SCH (07:32)
[2020-02-03] MEDS: Sennosides/Docusate Sodium TABLET PO SCH ×2 (07:32→21:29)
[2020-02-03] MEDS: carvediloL 25 MG TABLET PO SCH ×2 (07:32→17:05)
[2020-02-03] MEDS: Pregabalin 75 MG CAPSULE PO SCH ×2 (07:32→17:05)
[2020-02-03] MEDS: amLODIPine 5 MG TABLET PO SCH (07:32)
[2020-02-03] MEDS: hydrALAZINE 25 MG TABLET PO SCH ×2 (07:33→17:05)
[2020-02-03] MEDS: Cyanocobalamin (B-12) 1,000 MCG TABLET PO SCH (07:33)
[2020-02-03] MEDS: Aspirin Enteric Coated 81 MG Tablet PO SCH (07:33)
[2020-02-03] MEDS: Insulin LISPRO 300 UNITS/3 ML VIAL SQ SCH ×4 (07:34→22:01)
[2020-02-03] MEDS: Nystatin POWDER 30 GM BOTTLE TP SCH ×3 (10:42→21:46)
[2020-02-03] MEDS: Insulin DETEMIR 100 UNIT/ML X5UNITS SQ SCH ×2 (11:51→22:01)
[2020-02-04] MEDS: hydrALAZINE 25 MG TABLET PO SCH ×3 (01:00→16:45)
[2020-02-04 07:46] LABS: Hematocrit 29.6 % (35.3-44.9); Hemoglobin 9.4 g/dL (11.5-15.4); Mean Corpuscular HGB Conc 31.8 g/dL (31.6-35.5); Mean Corpuscular Hemoglobin 27.7 pg (28.0-33.3); Mean Corpuscular Volume 87.3 fL (83.0-100.0); Mean Platelet Volume 9.6 fL (9.4-12.4); Platelet Count 239 K/mcL (140-400); Red Blood Count 3.39 M/mcL (3.82-4.97); White Blood Count 8.3 K/mcL (4.3-11.1)
[2020-02-04 08:03] LABS: Calcium 8.6 mg/dL (8.6-10.3); Potassium 4.7 mEq/L (3.5-5.1)
[2020-02-04] MEDS: Aspirin Enteric Coated 81 MG Tablet PO SCH (09:11)
[2020-02-04] MEDS: Cholecalciferol (D-3) 1,000 UNIT (25MCG) TABLET PO SCH (09:11)
[2020-02-04] MEDS: amLODIPine 5 MG TABLET PO SCH (09:12)
[2020-02-04] MEDS: Pregabalin 75 MG CAPSULE PO SCH ×2 (09:12→16:45)
[2020-02-04] MEDS: carvediloL 25 MG TABLET PO SCH ×2 (09:12→16:45)
[2020-02-04] MEDS: Famotidine 20 MG TABLET PO SCH (09:12)
[2020-02-04] MEDS: Cyanocobalamin (B-12) 1,000 MCG TABLET PO SCH (09:12)
[2020-02-04] MEDS: Sennosides/Docusate Sodium TABLET PO SCH ×2 (09:12→20:08)
[2020-02-04] MEDS: Isosorbide MONOnitrate (24 HR) 60 MG TAB.ER.24H PO SCH (09:12)
[2020-02-04] MEDS: Nystatin POWDER 30 GM BOTTLE TP SCH ×3 (09:14→20:10)
[2020-02-04] MEDS: Insulin LISPRO 300 UNITS/3 ML VIAL SQ SCH ×4 (09:17→20:08)
[2020-02-04] MEDS: Insulin DETEMIR 100 UNIT/ML X5UNITS SQ SCH ×2 (09:17→20:07)
[2020-02-05] MEDS: hydrALAZINE 25 MG TABLET PO SCH ×3 (00:24→17:32)
[2020-02-05] MEDS: Aspirin Enteric Coated 81 MG Tablet PO SCH (09:25)
[2020-02-05] MEDS: Sennosides/Docusate Sodium TABLET PO SCH ×2 (09:25→21:52)
[2020-02-05] MEDS: Pregabalin 75 MG CAPSULE PO SCH ×2 (09:25→17:32)
[2020-02-05] MEDS: Cholecalciferol (D-3) 1,000 UNIT (25MCG) TABLET PO SCH (09:25)
[2020-02-05] MEDS: Cyanocobalamin (B-12) 1,000 MCG TABLET PO SCH (09:25)
[2020-02-05] MEDS: carvediloL 25 MG TABLET PO SCH ×2 (09:26→17:32)
[2020-02-05] MEDS: amLODIPine 5 MG TABLET PO SCH (09:26)
[2020-02-05] MEDS: Isosorbide MONOnitrate (24 HR) 60 MG TAB.ER.24H PO SCH (09:26)
[2020-02-05] MEDS: Famotidine 20 MG TABLET PO SCH (09:26)
[2020-02-05] MEDS: Insulin LISPRO 300 UNITS/3 ML VIAL SQ SCH ×4 (09:34→21:52)
[2020-02-05] MEDS: Nystatin POWDER 30 GM BOTTLE TP SCH ×3 (09:35→21:53)
[2020-02-05] MEDS: Insulin DETEMIR 100 UNIT/ML X5UNITS SQ SCH ×2 (10:28→21:52)
[2020-02-06] MEDS: amLODIPine 5 MG TABLET PO SCH (09:43)
[2020-02-06] MEDS: Aspirin Enteric Coated 81 MG Tablet PO SCH (09:43)
[2020-02-06] MEDS: Cholecalciferol (D-3) 1,000 UNIT (25MCG) TABLET PO SCH (09:43)
[2020-02-06] MEDS: hydrALAZINE 25 MG TABLET PO SCH ×3 (09:43→17:46)
[2020-02-06] MEDS: carvediloL 25 MG TABLET PO SCH ×2 (09:43→17:47)
[2020-02-06] MEDS: Isosorbide MONOnitrate (24 HR) 60 MG TAB.ER.24H PO SCH (09:43)
[2020-02-06] MEDS: Pregabalin 75 MG CAPSULE PO SCH ×2 (09:43→17:46)
[2020-02-06] MEDS: Sennosides/Docusate Sodium TABLET PO SCH ×2 (09:43→20:34)
[2020-02-06] MEDS: Insulin LISPRO 300 UNITS/3 ML VIAL SQ SCH ×4 (09:43→20:34)
[2020-02-06] MEDS: Nystatin POWDER 30 GM BOTTLE TP SCH ×3 (09:44→20:34)
[2020-02-06] MEDS: Famotidine 20 MG TABLET PO SCH (09:44)
[2020-02-06] MEDS: Cyanocobalamin (B-12) 1,000 MCG TABLET PO SCH (09:44)
[2020-02-06] MEDS: Insulin DETEMIR 100 UNIT/ML X5UNITS SQ SCH ×2 (09:48→20:34)
[2020-02-07] MEDS: hydrALAZINE 25 MG TABLET PO SCH ×3 (00:27→17:36)
[2020-02-07] MEDS: Insulin LISPRO 300 UNITS/3 ML VIAL SQ SCH ×4 (09:02→20:32)
[2020-02-07] MEDS: Cholecalciferol (D-3) 1,000 UNIT (25MCG) TABLET PO SCH (09:02)
[2020-02-07] MEDS: carvediloL 25 MG TABLET PO SCH ×2 (09:03→17:36)
[2020-02-07] MEDS: Aspirin Enteric Coated 81 MG Tablet PO SCH (09:03)
[2020-02-07] MEDS: amLODIPine 5 MG TABLET PO SCH (09:03)
[2020-02-07] MEDS: Cyanocobalamin (B-12) 1,000 MCG TABLET PO SCH (09:04)
[2020-02-07] MEDS: Pregabalin 75 MG CAPSULE PO SCH (09:04)
[2020-02-07] MEDS: Famotidine 20 MG TABLET PO SCH (09:05)
[2020-02-07] MEDS: Isosorbide MONOnitrate (24 HR) 60 MG TAB.ER.24H PO SCH (09:05)
[2020-02-07] MEDS: Sennosides/Docusate Sodium TABLET PO SCH ×2 (09:05→20:32)
[2020-02-07] MEDS: Insulin DETEMIR 100 UNIT/ML X5UNITS SQ SCH ×2 (09:05→20:32)
[2020-02-07] MEDS: Nystatin POWDER 30 GM BOTTLE TP SCH ×3 (09:30→20:32)
[2020-02-08] MEDS: hydrALAZINE 25 MG TABLET PO SCH ×4 (01:22→23:12)
[2020-02-08] MEDS: Insulin LISPRO 300 UNITS/3 ML VIAL SQ SCH ×4 (07:23→20:28)
[2020-02-08] MEDS: Pregabalin 75 MG CAPSULE PO SCH ×3 (07:23→17:31)
[2020-02-08] MEDS: amLODIPine 5 MG TABLET PO SCH (09:30)
[2020-02-08] MEDS: Sennosides/Docusate Sodium TABLET PO SCH ×2 (09:30→20:34)
[2020-02-08] MEDS: Aspirin Enteric Coated 81 MG Tablet PO SCH (09:30)
[2020-02-08] MEDS: Isosorbide MONOnitrate (24 HR) 60 MG TAB.ER.24H PO SCH (09:30)
[2020-02-08] MEDS: Cholecalciferol (D-3) 1,000 UNIT (25MCG) TABLET PO SCH (09:30)
[2020-02-08] MEDS: Famotidine 20 MG TABLET PO SCH (09:30)
[2020-02-08] MEDS: Cyanocobalamin (B-12) 1,000 MCG TABLET PO SCH (09:31)
[2020-02-08] MEDS: carvediloL 25 MG TABLET PO SCH ×2 (09:31→17:31)
[2020-02-08] MEDS: Nystatin POWDER 30 GM BOTTLE TP SCH ×3 (09:31→20:34)
[2020-02-08] MEDS: Insulin DETEMIR 100 UNIT/ML X5UNITS SQ SCH ×2 (09:32→20:33)
[2020-02-09] MEDS: Insulin LISPRO 300 UNITS/3 ML VIAL SQ SCH ×4 (07:28→22:05)
[2020-02-09] MEDS: Isosorbide MONOnitrate (24 HR) 60 MG TAB.ER.24H PO SCH (08:17)
[2020-02-09] MEDS: amLODIPine 5 MG TABLET PO SCH (08:17)
[2020-02-09] MEDS: Famotidine 20 MG TABLET PO SCH (08:17)
[2020-02-09] MEDS: Cholecalciferol (D-3) 1,000 UNIT (25MCG) TABLET PO SCH (08:17)
[2020-02-09] MEDS: hydrALAZINE 25 MG TABLET PO SCH ×2 (08:17→17:44)
[2020-02-09] MEDS: Pregabalin 75 MG CAPSULE PO SCH ×2 (08:17→17:44)
[2020-02-09] MEDS: Aspirin Enteric Coated 81 MG Tablet PO SCH (08:17)
[2020-02-09] MEDS: Sennosides/Docusate Sodium TABLET PO SCH ×2 (08:18→22:04)
[2020-02-09] MEDS: Cyanocobalamin (B-12) 1,000 MCG TABLET PO SCH (08:18)
[2020-02-09] MEDS: carvediloL 25 MG TABLET PO SCH ×2 (08:18→17:44)
[2020-02-09] MEDS: Nystatin POWDER 30 GM BOTTLE TP SCH ×3 (08:19→22:05)
[2020-02-09] MEDS: Insulin DETEMIR 100 UNIT/ML X5UNITS SQ SCH ×2 (08:20→22:05)
[2020-02-09 09:20] LABS: Basophils % 0.5 %; Eosinophils # 0.3 K/mcL (0.0-0.6); Eosinophils % 4.1 %; Hematocrit 30.5 % (35.3-44.9); Hemoglobin 9.7 g/dL (11.5-15.4); Immature Granulocytes % 0.4 % (0-4); Lymphocytes # 1.8 K/mcL (0.6-4.6); Lymphocytes % 23.6 %; Mean Corpuscular HGB Conc 31.8 g/dL (31.6-35.5); Mean Corpuscular Hemoglobin 27.9 pg (28.0-33.3); Mean Corpuscular Volume 87.6 fL (83.0-100.0); Mean Platelet Volume 9.7 fL (9.4-12.4); Monocytes # 0.6 K/mcL (0.0-1.3); Monocytes % 7.9 %; Neutrophils # 4.8 K/mcL (1.6-8.9); Platelet Count 295 K/mcL (140-400); Red Blood Count 3.48 M/mcL (3.82-4.97); Red Cell Distribution Width 15.9 % (11.5-14.5); Segmented Neutrophils % 63.5 %; White Blood Count 7.6 K/mcL (4.3-11.1)
[2020-02-09 09:33] LABS: Calcium 8.7 mg/dL (8.6-10.3); Potassium 4.6 mEq/L (3.5-5.1)
[2020-02-10] MEDS: Insulin LISPRO 300 UNITS/3 ML VIAL SQ SCH ×4 (08:00→23:01)
[2020-02-10] MEDS: amLODIPine 5 MG TABLET PO SCH (08:11)
[2020-02-10] MEDS: Sennosides/Docusate Sodium TABLET PO SCH ×2 (08:11→23:00)
[2020-02-10] MEDS: Cholecalciferol (D-3) 1,000 UNIT (25MCG) TABLET PO SCH (08:11)
[2020-02-10] MEDS: hydrALAZINE 25 MG TABLET PO SCH ×3 (08:11→16:41)
[2020-02-10] MEDS: Pregabalin 75 MG CAPSULE PO SCH ×2 (08:11→16:41)
[2020-02-10] MEDS: Aspirin Enteric Coated 81 MG Tablet PO SCH (08:11)
[2020-02-10] MEDS: Cyanocobalamin (B-12) 1,000 MCG TABLET PO SCH (08:12)
[2020-02-10] MEDS: Famotidine 20 MG TABLET PO SCH (08:12)
[2020-02-10] MEDS: carvediloL 25 MG TABLET PO SCH ×2 (08:12→16:41)
[2020-02-10] MEDS: Isosorbide MONOnitrate (24 HR) 60 MG TAB.ER.24H PO SCH (08:12)
[2020-02-10] MEDS: Nystatin POWDER 30 GM BOTTLE TP SCH ×3 (08:17→23:02)
[2020-02-10] MEDS: Insulin DETEMIR 100 UNIT/ML X5UNITS SQ SCH (08:44)
[2020-02-10 09:30] LABS: Basophils % 0.5 %; Eosinophils # 0.3 K/mcL (0.0-0.6); Eosinophils % 3.7 %; Hematocrit 30.4 % (35.3-44.9); Hemoglobin 9.8 g/dL (11.5-15.4); Immature Granulocytes % 0.2 % (0-4); Lymphocytes # 1.2 K/mcL (0.6-4.6); Lymphocytes % 14.2 %; Mean Corpuscular HGB Conc 32.2 g/dL (31.6-35.5); Mean Corpuscular Hemoglobin 28.2 pg (28.0-33.3); Mean Corpuscular Volume 87.6 fL (83.0-100.0); Mean Platelet Volume 9.6 fL (9.4-12.4); Monocytes # 0.6 K/mcL (0.0-1.3); Monocytes % 6.6 %; Neutrophils # 6.3 K/mcL (1.6-8.9); Platelet Count 316 K/mcL (140-400); Red Blood Count 3.47 M/mcL (3.82-4.97); Red Cell Distribution Width 15.9 % (11.5-14.5); Segmented Neutrophils % 74.8 %; White Blood Count 8.4 K/mcL (4.3-11.1)
[2020-02-10 09:43] LABS: Calcium 8.6 mg/dL (8.6-10.3); Potassium 5.1 mEq/L (3.5-5.1)
[2020-02-10] MEDS ORDERED: Furosemide 20 MG/2 ML VIAL IVP ONE (16:53)
[2020-02-10 21:27] LABS: Adenovirus Not Detected (Not Detect); Bordetella Pertussis Not Detected (Not Detect); Chlamydophila pneumoniae Not Detected (Not Detect); Coronavirus 229E Not Detected (Not Detect); Coronavirus HKU1 Not Detected (Not Detect); Coronavirus NL63 Not Detected (Not Detect); Coronavirus OC43 Not Detected (Not Detect); Human Metapneumovirus Not Detected (Not Detect); Human Rhinovirus/Enterovirus Not Detected (Not Detect); Influenza A Subtype 2009 H1 Not Detected (Not Detect); Influenza B Not Detected (Not Detect); Mycoplasma pneumoniae Not Detected (Not Detect); Parainfluenza Virus 1 Not Detected (Not Detect); Parainfluenza Virus 2 Not Detected (Not Detect); Parainfluenza Virus 3 Not Detected (Not Detect); Parainfluenza Virus 4 Not Detected (Not Detect); Respiratory Syncytial Virus Not Detected (Not Detect); SARS-CoV-2 Not Detected (Not Detect)
[2020-02-10] MEDS: Insulin DETEMIR 100 UNIT/ML X5UNITS SUBQ SCH (22:59)
[2020-02-11] MEDS: hydrALAZINE 25 MG TABLET PO SCH ×4 (00:33→23:15)
[2020-02-11 09:34] LABS: Calcium 8.7 mg/dL (8.6-10.3); Potassium 4.8 mEq/L (3.5-5.1)
[2020-02-11] MEDS: Insulin LISPRO 300 UNITS/3 ML VIAL SQ SCH ×4 (09:50→20:49)
[2020-02-11] MEDS: Cholecalciferol (D-3) 1,000 UNIT (25MCG) TABLET PO SCH (10:14)
[2020-02-11] MEDS: amLODIPine 5 MG TABLET PO SCH (10:15)
[2020-02-11] MEDS: Pregabalin 75 MG CAPSULE PO SCH ×2 (10:15→17:22)
[2020-02-11] MEDS: Sennosides/Docusate Sodium TABLET PO SCH ×2 (10:15→20:39)
[2020-02-11] MEDS: Famotidine 20 MG TABLET PO SCH (10:15)
[2020-02-11] MEDS: Insulin DETEMIR 100 UNIT/ML X5UNITS SUBQ SCH ×2 (10:16→20:48)
[2020-02-11] MEDS: Aspirin Enteric Coated 81 MG Tablet PO SCH (10:16)
[2020-02-11] MEDS: Cyanocobalamin (B-12) 1,000 MCG TABLET PO SCH (10:16)
[2020-02-11] MEDS: carvediloL 25 MG TABLET PO SCH ×2 (10:16→17:22)
[2020-02-11] MEDS: Isosorbide MONOnitrate (24 HR) 60 MG TAB.ER.24H PO SCH (10:16)
[2020-02-11] MEDS: Nystatin POWDER 30 GM BOTTLE TP SCH ×3 (12:27→20:41)
[2020-02-11] MEDS: Furosemide 40 MG TABLET PO SCH (17:22)
[2020-02-12] MEDS: Insulin LISPRO 300 UNITS/3 ML VIAL SQ SCH ×4 (07:30→22:20)
[2020-02-12] MEDS: Aspirin Enteric Coated 81 MG Tablet PO SCH (09:25)
[2020-02-12] MEDS: Cholecalciferol (D-3) 1,000 UNIT (25MCG) TABLET PO SCH (09:25)
[2020-02-12] MEDS: Pregabalin 75 MG CAPSULE PO SCH ×2 (09:26→17:06)
[2020-02-12] MEDS: amLODIPine 5 MG TABLET PO SCH (09:26)
[2020-02-12] MEDS: Sennosides/Docusate Sodium TABLET PO SCH ×2 (09:26→22:17)
[2020-02-12] MEDS: carvediloL 25 MG TABLET PO SCH ×2 (09:26→17:06)
[2020-02-12] MEDS: Famotidine 20 MG TABLET PO SCH (09:26)
[2020-02-12] MEDS: Furosemide 40 MG TABLET PO SCH ×2 (09:26→17:06)
[2020-02-12] MEDS: hydrALAZINE 25 MG TABLET PO SCH ×2 (09:27→15:24)
[2020-02-12] MEDS: Isosorbide MONOnitrate (24 HR) 60 MG TAB.ER.24H PO SCH (09:27)
[2020-02-12] MEDS: Cyanocobalamin (B-12) 1,000 MCG TABLET PO SCH (09:27)
[2020-02-12] MEDS: Nystatin POWDER 30 GM BOTTLE TP SCH ×3 (09:28→22:19)
[2020-02-12] MEDS: Insulin DETEMIR 100 UNIT/ML X5UNITS SUBQ SCH ×2 (09:28→22:23)
[2020-02-13] MEDS: hydrALAZINE 25 MG TABLET PO SCH ×2 (00:30→08:42)
[2020-02-13 07:08] VITALS: BP 125/70
[2020-02-13] MEDS: Insulin LISPRO 300 UNITS/3 ML VIAL SQ SCH ×2 (07:45→11:35)
[2020-02-13] MEDS: Cyanocobalamin (B-12) 1,000 MCG TABLET PO SCH (08:41)
[2020-02-13] MEDS: Pregabalin 75 MG CAPSULE PO SCH (08:41)
[2020-02-13] MEDS: carvediloL 25 MG TABLET PO SCH (08:41)
[2020-02-13] MEDS: Cholecalciferol (D-3) 1,000 UNIT (25MCG) TABLET PO SCH (08:41)
[2020-02-13] MEDS: Aspirin Enteric Coated 81 MG Tablet PO SCH (08:41)
[2020-02-13] MEDS: amLODIPine 5 MG TABLET PO SCH (08:42)
[2020-02-13] MEDS: Furosemide 40 MG TABLET PO SCH (08:42)
[2020-02-13] MEDS: Nystatin POWDER 30 GM BOTTLE TP SCH (08:42)
[2020-02-13] MEDS: Famotidine 20 MG TABLET PO SCH (08:42)
[2020-02-13] MEDS: Sennosides/Docusate Sodium TABLET PO SCH (08:42)
[2020-02-13] MEDS: Isosorbide MONOnitrate (24 HR) 60 MG TAB.ER.24H PO SCH (08:42)
[2020-02-13] MEDS: Insulin DETEMIR 100 UNIT/ML X5UNITS SUBQ SCH (08:43)
== END 2020-02-13 14:46 | disposition home health service (06) | DRG 56 ==
LOC: INPPIK 18:42
PROVIDERS: ADMIT Family Medicine; ATTEND Family Medicine

== ENCOUNTER 2020-03-15 14:51 | Inpatient (IN) ==
[2020-03-15] MEDS: Ondansetron 4 MG/2 ML VIAL IVP PRN (16:36)
[2020-03-15] MEDS: carvediloL 25 MG TABLET PO SCH (16:36)
[2020-03-15] MEDS: cloNIDine HCL 0.1 MG TABLET PO SCH (19:55)
[2020-03-15] MEDS: Pregabalin 75 MG CAPSULE PO SCH (19:55)
[2020-03-15] MEDS ORDERED: Insulin DETEMIR 100 UNIT/ML X5UNITS SUBQ SCH (21:00)
[2020-03-16] MEDS: Acetaminophen 325 MG TABLET PO PRN (04:07)
[2020-03-16 07:35] LABS: Basophils # 0.1 K/mcL (0.0-0.2); Basophils % 0.7 %; Eosinophils # 0.5 K/mcL (0.0-0.6); Hematocrit 27.7 % (35.3-44.9); Hemoglobin 9.1 g/dL (11.5-15.4); Immature Granulocytes % 0.6 % (0-4); Lymphocytes # 1.7 K/mcL (0.6-4.6); Lymphocytes % 20.4 %; Mean Corpuscular HGB Conc 32.9 g/dL (31.6-35.5); Mean Corpuscular Hemoglobin 27.7 pg (28.0-33.3); Mean Corpuscular Volume 84.5 fL (83.0-100.0); Mean Platelet Volume 8.9 fL (9.4-12.4); Monocytes # 0.7 K/mcL (0.0-1.3); Monocytes % 8.5 %; Neutrophils # 5.4 K/mcL (1.6-8.9); Platelet Count 392 K/mcL (140-400); Red Blood Count 3.28 M/mcL (3.82-4.97); Red Cell Distribution Width 14.2 % (11.5-14.5); Segmented Neutrophils % 63.8 %; White Blood Count 8.5 K/mcL (4.3-11.1)
[2020-03-16 07:54] LABS: Potassium 3.9 mEq/L (3.5-5.1)
[2020-03-16] MEDS ORDERED: levoFLOXacin 750 MG TABLET PO SCH (09:00)
[2020-03-16] MEDS: Aspirin Enteric Coated 81 MG Tablet PO SCH (09:11)
[2020-03-16] MEDS: carvediloL 25 MG TABLET PO SCH ×2 (09:15→16:21)
[2020-03-16] MEDS: Isosorbide MONOnitrate (24 HR) 60 MG TAB.ER.24H PO SCH (09:15)
[2020-03-16] MEDS: hydrALAZINE 25 MG TABLET PO SCH (09:15)
[2020-03-16] MEDS: Furosemide 40 MG TABLET PO SCH (09:15)
[2020-03-16] MEDS: Cholecalciferol (D-3) 1,000 UNIT (25MCG) TABLET PO SCH (09:15)
[2020-03-16] MEDS: cloNIDine HCL 0.1 MG TABLET PO SCH ×2 (09:16→20:58)
[2020-03-16] MEDS: Pregabalin 75 MG CAPSULE PO SCH (20:58)
[2020-03-16] MEDS: Insulin DETEMIR 100 UNIT/ML X5UNITS SUBQ SCH (20:59)
[2020-03-17] MEDS: Ondansetron 4 MG/2 ML VIAL IVP PRN ×2 (02:57→10:57)
[2020-03-17] MEDS: Furosemide 40 MG TABLET PO SCH (08:32)
[2020-03-17] MEDS: levoFLOXacin 250 MG TABLET PO SCH (08:32)
[2020-03-17] MEDS: carvediloL 25 MG TABLET PO SCH ×2 (08:32→16:34)
[2020-03-17] MEDS: cloNIDine HCL 0.1 MG TABLET PO SCH ×2 (08:32→22:08)
[2020-03-17] MEDS: Isosorbide MONOnitrate (24 HR) 60 MG TAB.ER.24H PO SCH (08:32)
[2020-03-17] MEDS: Aspirin Enteric Coated 81 MG Tablet PO SCH (08:32)
[2020-03-17] MEDS: Cholecalciferol (D-3) 1,000 UNIT (25MCG) TABLET PO SCH (08:32)
[2020-03-17] MEDS: hydrALAZINE 25 MG TABLET PO SCH (08:32)
[2020-03-17] MEDS: Pregabalin 75 MG CAPSULE PO SCH (22:09)
[2020-03-17] MEDS: Insulin DETEMIR 100 UNIT/ML X5UNITS SUBQ SCH (23:48)
[2020-03-18] MEDS: carvediloL 25 MG TABLET PO SCH ×2 (08:26→17:36)
[2020-03-18] MEDS: Cholecalciferol (D-3) 1,000 UNIT (25MCG) TABLET PO SCH (08:26)
[2020-03-18] MEDS: Aspirin Enteric Coated 81 MG Tablet PO SCH (08:27)
[2020-03-18] MEDS: Isosorbide MONOnitrate (24 HR) 60 MG TAB.ER.24H PO SCH (08:27)
[2020-03-18] MEDS: levoFLOXacin 250 MG TABLET PO SCH (08:27)
[2020-03-18] MEDS: Furosemide 40 MG TABLET PO SCH (08:27)
[2020-03-18] MEDS: hydrALAZINE 25 MG TABLET PO SCH (08:27)
[2020-03-18] MEDS: cloNIDine HCL 0.1 MG TABLET PO SCH ×2 (08:27→21:59)
[2020-03-18] MEDS: Pregabalin 75 MG CAPSULE PO SCH (21:59)
[2020-03-18] MEDS: Insulin DETEMIR 100 UNIT/ML X5UNITS SUBQ SCH (22:06)
[2020-03-19] MEDS: hydrALAZINE 25 MG TABLET PO SCH (09:11)
[2020-03-19] MEDS: levoFLOXacin 250 MG TABLET PO SCH (09:11)
[2020-03-19] MEDS: Cholecalciferol (D-3) 1,000 UNIT (25MCG) TABLET PO SCH (09:12)
[2020-03-19] MEDS: Isosorbide MONOnitrate (24 HR) 60 MG TAB.ER.24H PO SCH (09:12)
[2020-03-19] MEDS: Aspirin Enteric Coated 81 MG Tablet PO SCH (09:12)
[2020-03-19] MEDS: Furosemide 40 MG TABLET PO SCH (09:12)
[2020-03-19] MEDS: carvediloL 25 MG TABLET PO SCH ×2 (09:12→17:55)
[2020-03-19] MEDS: cloNIDine HCL 0.1 MG TABLET PO SCH ×2 (09:12→21:47)
[2020-03-19] MEDS: Ondansetron 4 MG/2 ML VIAL IVP PRN (10:19)
[2020-03-19] MEDS ORDERED: D5% in Water 1,000 ML IVC PRN (17:52)
[2020-03-19] MEDS ORDERED: *HR* Dextrose 50 % in Water (Vial) 50 ML VIAL IVP PRN (17:52)
[2020-03-19] MEDS ORDERED: Dextrose Gel 15 GM/37.5 ML TUBE PO PRN ×2 (17:52)
[2020-03-19] MEDS: Insulin DETEMIR 100 UNIT/ML X5UNITS SUBQ SCH (21:46)
[2020-03-19] MEDS: Pregabalin 75 MG CAPSULE PO SCH (21:47)
[2020-03-19] MEDS: Insulin LISPRO 300 UNITS/3 ML VIAL SUBQ SCH (21:48)
[2020-03-20] MEDS: Cholecalciferol (D-3) 1,000 UNIT (25MCG) TABLET PO SCH (08:34)
[2020-03-20] MEDS: Insulin LISPRO 300 UNITS/3 ML VIAL SUBQ SCH ×4 (08:34→20:26)
[2020-03-20] MEDS: Aspirin Enteric Coated 81 MG Tablet PO SCH (08:34)
[2020-03-20] MEDS: Isosorbide MONOnitrate (24 HR) 60 MG TAB.ER.24H PO SCH (08:35)
[2020-03-20] MEDS: Furosemide 40 MG TABLET PO SCH (08:35)
[2020-03-20] MEDS: carvediloL 25 MG TABLET PO SCH ×2 (08:35→17:07)
[2020-03-20] MEDS: cloNIDine HCL 0.1 MG TABLET PO SCH ×2 (08:35→20:21)
[2020-03-20] MEDS: hydrALAZINE 25 MG TABLET PO SCH (08:35)
[2020-03-20] MEDS: levoFLOXacin 250 MG TABLET PO SCH (08:35)
[2020-03-20] MEDS: Pregabalin 75 MG CAPSULE PO SCH (20:20)
[2020-03-20] MEDS: Insulin DETEMIR 100 UNIT/ML X5UNITS SUBQ SCH (20:26)
[2020-03-21 07:11] LABS: Basophils # 0.1 K/mcL (0.0-0.2); Basophils % 0.6 %; Eosinophils # 0.8 K/mcL (0.0-0.6); Eosinophils % 8.2 %; Hematocrit 31.6 % (35.3-44.9); Hemoglobin 10.2 g/dL (11.5-15.4); Immature Granulocytes % 0.2 % (0-4); Lymphocytes # 1.8 K/mcL (0.6-4.6); Lymphocytes % 18.4 %; Mean Corpuscular HGB Conc 32.3 g/dL (31.6-35.5); Mean Corpuscular Hemoglobin 26.9 pg (28.0-33.3); Mean Corpuscular Volume 83.4 fL (83.0-100.0); Mean Platelet Volume 8.9 fL (9.4-12.4); Monocytes # 0.6 K/mcL (0.0-1.3); Monocytes % 6.2 %; Neutrophils # 6.4 K/mcL (1.6-8.9); Platelet Count 354 K/mcL (140-400); Red Blood Count 3.79 M/mcL (3.82-4.97); Red Cell Distribution Width 14.5 % (11.5-14.5); Segmented Neutrophils % 66.4 %; White Blood Count 9.7 K/mcL (4.3-11.1)
[2020-03-21 07:40] LABS: Potassium 4.4 mEq/L (3.5-5.1)
[2020-03-21] MEDS: Isosorbide MONOnitrate (24 HR) 60 MG TAB.ER.24H PO SCH (08:53)
[2020-03-21] MEDS: Cholecalciferol (D-3) 1,000 UNIT (25MCG) TABLET PO SCH (08:54)
[2020-03-21] MEDS: carvediloL 25 MG TABLET PO SCH ×2 (08:54→17:12)
[2020-03-21] MEDS: hydrALAZINE 25 MG TABLET PO SCH (08:54)
[2020-03-21] MEDS: cloNIDine HCL 0.1 MG TABLET PO SCH ×2 (08:55→20:23)
[2020-03-21] MEDS: Aspirin Enteric Coated 81 MG Tablet PO SCH (08:55)
[2020-03-21] MEDS: Insulin DETEMIR 100 UNIT/ML X5UNITS SUBQ SCH ×2 (08:56→20:23)
[2020-03-21] MEDS: 0.9 % Sodium Chloride 1,000 ML IVC SCH ×2 (08:57→23:21)
[2020-03-21] MEDS: Insulin LISPRO 300 UNITS/3 ML VIAL SUBQ SCH ×4 (09:22→20:24)
[2020-03-21] MEDS: Pregabalin 75 MG CAPSULE PO SCH (20:22)
[2020-03-22 08:10] LABS: Calcium 8.8 mg/dL (8.6-10.3); Potassium 4.6 mEq/L (3.5-5.1)
[2020-03-22] MEDS: Insulin LISPRO 300 UNITS/3 ML VIAL SUBQ SCH ×4 (08:19→20:36)
[2020-03-22] MEDS: cloNIDine HCL 0.1 MG TABLET PO SCH ×2 (08:20→20:35)
[2020-03-22] MEDS: hydrALAZINE 25 MG TABLET PO SCH (08:20)
[2020-03-22] MEDS: Cholecalciferol (D-3) 1,000 UNIT (25MCG) TABLET PO SCH (08:20)
[2020-03-22] MEDS: Aspirin Enteric Coated 81 MG Tablet PO SCH (08:20)
[2020-03-22] MEDS: Isosorbide MONOnitrate (24 HR) 60 MG TAB.ER.24H PO SCH (08:20)
[2020-03-22] MEDS: carvediloL 25 MG TABLET PO SCH ×2 (08:20→17:39)
[2020-03-22] MEDS: Insulin DETEMIR 100 UNIT/ML X5UNITS SUBQ SCH ×2 (08:30→20:35)
[2020-03-22] MEDS: 0.9 % Sodium Chloride 1,000 ML IVC SCH (13:52)
[2020-03-22] MEDS: Sennosides/Docusate Sodium TABLET PO SCH ×2 (13:53→20:34)
[2020-03-22] MEDS: Pregabalin 75 MG CAPSULE PO SCH (20:35)
[2020-03-23] MEDS: 0.9 % Sodium Chloride 1,000 ML IVC SCH (03:26)
[2020-03-23] MEDS ORDERED: *HR* Enoxaparin 40 MG/0.4 ML SYRINGE SQ SCH (06:00)
[2020-03-23] MEDS: *HR* Enoxaparin 30 MG/0.3 ML SYRINGE SQ SCH (06:18)
[2020-03-23] MEDS: Cholecalciferol (D-3) 1,000 UNIT (25MCG) TABLET PO SCH (08:29)
[2020-03-23] MEDS: Aspirin Enteric Coated 81 MG Tablet PO SCH (08:29)
[2020-03-23] MEDS: Insulin LISPRO 300 UNITS/3 ML VIAL SUBQ SCH ×4 (08:29→21:33)
[2020-03-23] MEDS: Insulin DETEMIR 100 UNIT/ML X5UNITS SUBQ SCH ×2 (08:30→21:33)
[2020-03-23] MEDS: hydrALAZINE 25 MG TABLET PO SCH (08:30)
[2020-03-23] MEDS: Isosorbide MONOnitrate (24 HR) 60 MG TAB.ER.24H PO SCH (08:30)
[2020-03-23] MEDS: carvediloL 25 MG TABLET PO SCH ×2 (08:30→16:52)
[2020-03-23] MEDS: Sennosides/Docusate Sodium TABLET PO SCH ×2 (08:30→21:31)
[2020-03-23] MEDS: cloNIDine HCL 0.1 MG TABLET PO SCH ×2 (08:30→21:31)
[2020-03-23] MEDS: Furosemide 40 MG TABLET PO SCH (11:36)
[2020-03-23] MEDS: Pregabalin 75 MG CAPSULE PO SCH (21:32)
[2020-03-24] MEDS: *HR* Enoxaparin 30 MG/0.3 ML SYRINGE SQ SCH (06:24)
[2020-03-24] MEDS: Insulin LISPRO 300 UNITS/3 ML VIAL SUBQ SCH ×4 (09:27→20:46)
[2020-03-24] MEDS: hydrALAZINE 25 MG TABLET PO SCH (09:28)
[2020-03-24] MEDS: cloNIDine HCL 0.1 MG TABLET PO SCH ×2 (09:29→20:46)
[2020-03-24] MEDS: Isosorbide MONOnitrate (24 HR) 60 MG TAB.ER.24H PO SCH (09:29)
[2020-03-24] MEDS: Aspirin Enteric Coated 81 MG Tablet PO SCH (09:29)
[2020-03-24] MEDS: Insulin DETEMIR 100 UNIT/ML X5UNITS SUBQ SCH ×2 (09:29→20:46)
[2020-03-24] MEDS: Cholecalciferol (D-3) 1,000 UNIT (25MCG) TABLET PO SCH (09:29)
[2020-03-24] MEDS: carvediloL 25 MG TABLET PO SCH ×2 (09:29→17:08)
[2020-03-24] MEDS: Sennosides/Docusate Sodium TABLET PO SCH ×2 (09:30→21:43)
[2020-03-24] MEDS: Pregabalin 75 MG CAPSULE PO SCH (20:45)
[2020-03-25] MEDS: *HR* Enoxaparin 30 MG/0.3 ML SYRINGE SQ SCH (05:25)
[2020-03-25] MEDS: Aspirin Enteric Coated 81 MG Tablet PO SCH (08:32)
[2020-03-25] MEDS: Sennosides/Docusate Sodium TABLET PO SCH ×2 (08:32→20:32)
[2020-03-25] MEDS: Cholecalciferol (D-3) 1,000 UNIT (25MCG) TABLET PO SCH (08:33)
[2020-03-25] MEDS: cloNIDine HCL 0.1 MG TABLET PO SCH ×2 (08:33→20:30)
[2020-03-25] MEDS: Isosorbide MONOnitrate (24 HR) 60 MG TAB.ER.24H PO SCH (08:33)
[2020-03-25] MEDS: hydrALAZINE 25 MG TABLET PO SCH (08:33)
[2020-03-25] MEDS: carvediloL 25 MG TABLET PO SCH ×2 (08:33→16:33)
[2020-03-25] MEDS: Insulin LISPRO 300 UNITS/3 ML VIAL SUBQ SCH ×4 (08:35→20:31)
[2020-03-25 09:33] LABS: Calcium 9.1 mg/dL (8.6-10.3); Potassium 5.2 mEq/L (3.5-5.1)
[2020-03-25] MEDS: Insulin DETEMIR 100 UNIT/ML X5UNITS SUBQ SCH ×2 (09:37→20:30)
[2020-03-25] MEDS: amLODIPine 5 MG TABLET PO SCH (11:55)
[2020-03-25] MEDS: Pregabalin 75 MG CAPSULE PO SCH (20:30)
[2020-03-25] MEDS ORDERED: hydrALAZINE 25 MG TABLET PO PRN (21:57)
[2020-03-25] MEDS: Nystatin POWDER 30 GM BOTTLE TP SCH (22:15)
[2020-03-26] MEDS: *HR* Enoxaparin 30 MG/0.3 ML SYRINGE SQ SCH (05:31)
[2020-03-26] MEDS: cloNIDine HCL 0.1 MG TABLET PO SCH ×2 (08:03→19:53)
[2020-03-26] MEDS: Isosorbide MONOnitrate (24 HR) 60 MG TAB.ER.24H PO SCH (08:03)
[2020-03-26] MEDS: Sennosides/Docusate Sodium TABLET PO SCH ×2 (08:03→19:54)
[2020-03-26] MEDS: Insulin LISPRO 300 UNITS/3 ML VIAL SUBQ SCH ×4 (08:03→20:27)
[2020-03-26] MEDS: Cholecalciferol (D-3) 1,000 UNIT (25MCG) TABLET PO SCH (08:03)
[2020-03-26] MEDS: amLODIPine 5 MG TABLET PO SCH (08:03)
[2020-03-26] MEDS: carvediloL 25 MG TABLET PO SCH ×2 (08:03→17:16)
[2020-03-26] MEDS: Aspirin Enteric Coated 81 MG Tablet PO SCH (08:03)
[2020-03-26] MEDS: Nystatin POWDER 30 GM BOTTLE TP SCH ×2 (08:04→19:54)
[2020-03-26 09:02] LABS: Calcium 9.3 mg/dL (8.6-10.3)
[2020-03-26] MEDS: Insulin DETEMIR 100 UNIT/ML X5UNITS SUBQ SCH ×2 (09:02→20:27)
[2020-03-26] MEDS: Furosemide 40 MG TABLET PO SCH (09:30)
[2020-03-26] MEDS: Pregabalin 75 MG CAPSULE PO SCH (19:54)
[2020-03-27] MEDS: *HR* Enoxaparin 30 MG/0.3 ML SYRINGE SQ SCH (06:02)
[2020-03-27] MEDS: Insulin LISPRO 300 UNITS/3 ML VIAL SUBQ SCH ×4 (07:42→20:10)
[2020-03-27] MEDS: cloNIDine HCL 0.1 MG TABLET PO SCH ×2 (09:02→20:08)
[2020-03-27] MEDS: Cholecalciferol (D-3) 1,000 UNIT (25MCG) TABLET PO SCH (09:02)
[2020-03-27] MEDS: carvediloL 25 MG TABLET PO SCH ×2 (09:02→17:13)
[2020-03-27] MEDS: Aspirin Enteric Coated 81 MG Tablet PO SCH (09:02)
[2020-03-27] MEDS: Isosorbide MONOnitrate (24 HR) 60 MG TAB.ER.24H PO SCH (09:02)
[2020-03-27] MEDS: amLODIPine 5 MG TABLET PO SCH (09:03)
[2020-03-27] MEDS: Furosemide 40 MG TABLET PO SCH (09:03)
[2020-03-27] MEDS: Sennosides/Docusate Sodium TABLET PO SCH ×2 (09:04→20:09)
[2020-03-27] MEDS: Nystatin POWDER 30 GM BOTTLE TP SCH ×2 (09:04→20:12)
[2020-03-27] MEDS: Insulin DETEMIR 100 UNIT/ML X5UNITS SUBQ SCH ×2 (09:05→20:09)
[2020-03-27] MEDS: Pregabalin 75 MG CAPSULE PO SCH (20:08)
[2020-03-28] MEDS: *HR* Enoxaparin 30 MG/0.3 ML SYRINGE SQ SCH (06:19)
[2020-03-28] MEDS: Sennosides/Docusate Sodium TABLET PO SCH ×2 (09:26→19:57)
[2020-03-28] MEDS: Aspirin Enteric Coated 81 MG Tablet PO SCH (09:26)
[2020-03-28] MEDS: Furosemide 20 MG TABLET PO SCH (09:27)
[2020-03-28] MEDS: amLODIPine 5 MG TABLET PO SCH (09:27)
[2020-03-28] MEDS: carvediloL 25 MG TABLET PO SCH ×2 (09:27→15:30)
[2020-03-28] MEDS: cloNIDine HCL 0.1 MG TABLET PO SCH ×2 (09:27→19:53)
[2020-03-28] MEDS: Cholecalciferol (D-3) 1,000 UNIT (25MCG) TABLET PO SCH (09:27)
[2020-03-28] MEDS: Isosorbide MONOnitrate (24 HR) 60 MG TAB.ER.24H PO SCH (09:27)
[2020-03-28] MEDS: Nystatin POWDER 30 GM BOTTLE TP SCH ×2 (09:28→19:57)
[2020-03-28] MEDS: Insulin LISPRO 300 UNITS/3 ML VIAL SUBQ SCH ×4 (09:29→19:56)
[2020-03-28] MEDS: Insulin DETEMIR 100 UNIT/ML X5UNITS SUBQ SCH ×2 (09:29→19:53)
[2020-03-28] MEDS: Pregabalin 75 MG CAPSULE PO SCH (19:53)
[2020-03-29] MEDS: *HR* Enoxaparin 30 MG/0.3 ML SYRINGE SQ SCH (06:26)
[2020-03-29] MEDS: Insulin DETEMIR 100 UNIT/ML X5UNITS SUBQ SCH ×2 (08:55→20:24)
[2020-03-29] MEDS: cloNIDine HCL 0.1 MG TABLET PO SCH ×2 (08:56→20:22)
[2020-03-29] MEDS: amLODIPine 5 MG TABLET PO SCH (08:56)
[2020-03-29] MEDS: Cholecalciferol (D-3) 1,000 UNIT (25MCG) TABLET PO SCH (08:56)
[2020-03-29] MEDS: Insulin LISPRO 300 UNITS/3 ML VIAL SUBQ SCH ×4 (08:56→20:24)
[2020-03-29] MEDS: carvediloL 25 MG TABLET PO SCH ×2 (08:57→16:48)
[2020-03-29] MEDS: Furosemide 20 MG TABLET PO SCH (08:57)
[2020-03-29] MEDS: Isosorbide MONOnitrate (24 HR) 60 MG TAB.ER.24H PO SCH (08:57)
[2020-03-29] MEDS: Aspirin Enteric Coated 81 MG Tablet PO SCH (08:57)
[2020-03-29] MEDS: Sennosides/Docusate Sodium TABLET PO SCH ×2 (08:57→20:30)
[2020-03-29] MEDS: Nystatin POWDER 30 GM BOTTLE TP SCH (08:58)
[2020-03-29] MEDS: Pregabalin 75 MG CAPSULE PO SCH (20:22)
[2020-03-30] MEDS: *HR* Enoxaparin 30 MG/0.3 ML SYRINGE SQ SCH (07:41)
[2020-03-30] MEDS: Nystatin POWDER 30 GM BOTTLE TP SCH ×3 (07:43→20:34)
[2020-03-30] MEDS: Insulin LISPRO 300 UNITS/3 ML VIAL SUBQ SCH ×4 (08:33→20:28)
[2020-03-30] MEDS: Insulin DETEMIR 100 UNIT/ML X5UNITS SUBQ SCH ×2 (08:37→20:23)
[2020-03-30] MEDS: Aspirin Enteric Coated 81 MG Tablet PO SCH (08:38)
[2020-03-30] MEDS: cloNIDine HCL 0.1 MG TABLET PO SCH ×2 (08:38→20:22)
[2020-03-30] MEDS: Isosorbide MONOnitrate (24 HR) 60 MG TAB.ER.24H PO SCH (08:39)
[2020-03-30] MEDS: Cholecalciferol (D-3) 1,000 UNIT (25MCG) TABLET PO SCH (08:39)
[2020-03-30] MEDS: amLODIPine 5 MG TABLET PO SCH (08:39)
[2020-03-30] MEDS: Sennosides/Docusate Sodium TABLET PO SCH ×2 (08:39→20:22)
[2020-03-30] MEDS: carvediloL 25 MG TABLET PO SCH ×2 (08:39→16:49)
[2020-03-30] MEDS: Furosemide 20 MG TABLET PO SCH (08:39)
[2020-03-31] MEDS: *HR* Enoxaparin 30 MG/0.3 ML SYRINGE SQ SCH (06:07)
[2020-03-31] MEDS: Furosemide 20 MG TABLET PO SCH (09:17)
[2020-03-31] MEDS: Aspirin Enteric Coated 81 MG Tablet PO SCH (09:17)
[2020-03-31] MEDS: Cholecalciferol (D-3) 1,000 UNIT (25MCG) TABLET PO SCH (09:17)
[2020-03-31] MEDS: amLODIPine 5 MG TABLET PO SCH (09:17)
[2020-03-31] MEDS: carvediloL 25 MG TABLET PO SCH ×2 (09:17→16:32)
[2020-03-31] MEDS: Isosorbide MONOnitrate (24 HR) 60 MG TAB.ER.24H PO SCH (09:17)
[2020-03-31] MEDS: cloNIDine HCL 0.1 MG TABLET PO SCH ×2 (09:18→21:12)
[2020-03-31] MEDS: Sennosides/Docusate Sodium TABLET PO SCH ×2 (09:18→21:14)
[2020-03-31] MEDS: Insulin DETEMIR 100 UNIT/ML X5UNITS SUBQ SCH ×2 (09:21→21:12)
[2020-03-31] MEDS: Insulin LISPRO 300 UNITS/3 ML VIAL SUBQ SCH ×4 (09:21→21:13)
[2020-03-31] MEDS: Nystatin POWDER 30 GM BOTTLE TP SCH ×2 (18:36→21:14)
[2020-03-31] MEDS: Pregabalin 75 MG CAPSULE PO SCH (21:52)
[2020-04-01] MEDS: *HR* Enoxaparin 30 MG/0.3 ML SYRINGE SQ SCH (05:31)
[2020-04-01] MEDS: Insulin LISPRO 300 UNITS/3 ML VIAL SUBQ SCH ×4 (08:04→20:52)
[2020-04-01] MEDS: cloNIDine HCL 0.1 MG TABLET PO SCH ×2 (08:30→19:59)
[2020-04-01] MEDS: amLODIPine 5 MG TABLET PO SCH (08:30)
[2020-04-01] MEDS: Sennosides/Docusate Sodium TABLET PO SCH ×2 (08:31→20:00)
[2020-04-01] MEDS: Furosemide 20 MG TABLET PO SCH (08:31)
[2020-04-01] MEDS: Cholecalciferol (D-3) 1,000 UNIT (25MCG) TABLET PO SCH (08:31)
[2020-04-01] MEDS: carvediloL 25 MG TABLET PO SCH ×2 (08:31→17:10)
[2020-04-01] MEDS: Aspirin Enteric Coated 81 MG Tablet PO SCH (08:31)
[2020-04-01] MEDS: Isosorbide MONOnitrate (24 HR) 60 MG TAB.ER.24H PO SCH (08:31)
[2020-04-01] MEDS: Nystatin POWDER 30 GM BOTTLE TP SCH ×2 (08:32→20:54)
[2020-04-01] MEDS: Insulin DETEMIR 100 UNIT/ML X5UNITS SUBQ SCH ×2 (08:33→20:51)
[2020-04-01] MEDS: Pregabalin 75 MG CAPSULE PO SCH (20:00)
[2020-04-01] MEDS: Gentamicin Oint 15 GM TUBE TP SCH (20:52)
[2020-04-02] MEDS: *HR* Enoxaparin 30 MG/0.3 ML SYRINGE SQ SCH (05:55)
[2020-04-02] MEDS: Insulin LISPRO 300 UNITS/3 ML VIAL SUBQ SCH ×4 (07:48→22:18)
[2020-04-02] MEDS: Isosorbide MONOnitrate (24 HR) 60 MG TAB.ER.24H PO SCH (08:20)
[2020-04-02] MEDS: Furosemide 20 MG TABLET PO SCH (08:20)
[2020-04-02] MEDS: Sennosides/Docusate Sodium TABLET PO SCH ×2 (08:20→22:16)
[2020-04-02] MEDS: Cholecalciferol (D-3) 1,000 UNIT (25MCG) TABLET PO SCH (08:20)
[2020-04-02] MEDS: carvediloL 25 MG TABLET PO SCH ×2 (08:20→17:18)
[2020-04-02] MEDS: cloNIDine HCL 0.1 MG TABLET PO SCH ×2 (08:20→22:16)
[2020-04-02] MEDS: Aspirin Enteric Coated 81 MG Tablet PO SCH (08:20)
[2020-04-02] MEDS: amLODIPine 5 MG TABLET PO SCH (08:20)
[2020-04-02] MEDS: Gentamicin Oint 15 GM TUBE TP SCH ×2 (08:21→22:20)
[2020-04-02] MEDS: Nystatin POWDER 30 GM BOTTLE TP SCH ×2 (08:21→22:19)
[2020-04-02] MEDS: Insulin DETEMIR 100 UNIT/ML X5UNITS SUBQ SCH ×2 (08:39→22:17)
[2020-04-02] MEDS: Pregabalin 75 MG CAPSULE PO SCH (22:17)
[2020-04-03] MEDS: *HR* Enoxaparin 30 MG/0.3 ML SYRINGE SQ SCH (05:42)
[2020-04-03] MEDS: Acetaminophen 325 MG TABLET PO PRN (05:43)
[2020-04-03] MEDS: Insulin LISPRO 300 UNITS/3 ML VIAL SUBQ SCH ×4 (07:48→22:06)
[2020-04-03] MEDS: amLODIPine 5 MG TABLET PO SCH (07:55)
[2020-04-03] MEDS: cloNIDine HCL 0.1 MG TABLET PO SCH ×2 (07:55→22:04)
[2020-04-03] MEDS: Aspirin Enteric Coated 81 MG Tablet PO SCH (07:55)
[2020-04-03] MEDS: Isosorbide MONOnitrate (24 HR) 60 MG TAB.ER.24H PO SCH (07:55)
[2020-04-03] MEDS: Cholecalciferol (D-3) 1,000 UNIT (25MCG) TABLET PO SCH (07:55)
[2020-04-03] MEDS: Furosemide 20 MG TABLET PO SCH (07:55)
[2020-04-03] MEDS: carvediloL 25 MG TABLET PO SCH ×2 (07:55→17:24)
[2020-04-03] MEDS: Sennosides/Docusate Sodium TABLET PO SCH ×2 (07:56→22:04)
[2020-04-03] MEDS: Insulin DETEMIR 100 UNIT/ML X5UNITS SUBQ SCH ×2 (08:14→22:05)
[2020-04-03 08:15] LABS: Basophils % 0.5 %; Eosinophils # 0.3 K/mcL (0.0-0.6); Eosinophils % 3.8 %; Hematocrit 28.4 % (35.3-44.9); Hemoglobin 9.2 g/dL (11.5-15.4); Immature Granulocytes % 0.2 % (0-4); Lymphocytes # 1.8 K/mcL (0.6-4.6); Lymphocytes % 21.7 %; Mean Corpuscular HGB Conc 32.4 g/dL (31.6-35.5); Mean Corpuscular Hemoglobin 27.1 pg (28.0-33.3); Mean Corpuscular Volume 83.5 fL (83.0-100.0); Mean Platelet Volume 9.3 fL (9.4-12.4); Monocytes # 0.6 K/mcL (0.0-1.3); Monocytes % 7.1 %; Neutrophils # 5.6 K/mcL (1.6-8.9); Platelet Count 284 K/mcL (140-400); Red Cell Distribution Width 14.4 % (11.5-14.5); Segmented Neutrophils % 66.7 %; White Blood Count 8.3 K/mcL (4.3-11.1)
[2020-04-03 08:33] LABS: Calcium 9.5 mg/dL (8.6-10.3); Potassium 4.5 mEq/L (3.5-5.1)
[2020-04-03] MEDS: Nystatin POWDER 30 GM BOTTLE TP SCH ×2 (11:52→22:06)
[2020-04-03] MEDS: Gentamicin Oint 15 GM TUBE TP SCH ×2 (11:59→22:08)
[2020-04-03] MEDS ORDERED: hydrALAZINE 25 MG TABLET PO PRN (14:31)
[2020-04-03] MEDS: Pregabalin 75 MG CAPSULE PO SCH (22:05)
[2020-04-03] MEDS: *HR* Heparin 5,000 UNIT/ML VIAL SQ SCH (22:05)
[2020-04-04] MEDS: Acetaminophen 325 MG TABLET PO PRN (01:01)
[2020-04-04] MEDS: Ondansetron ODT 4 MG TAB.RAPDIS SL PRN (01:03)
[2020-04-04] MEDS ORDERED: *HR* Metoprolol 5 MG/5 ML VIAL IVP PRN (03:41)
[2020-04-04] MEDS ORDERED: Ondansetron 4 MG/2 ML VIAL IVP PRN (03:42)
[2020-04-04] MEDS ORDERED: Acetaminophen 650 MG RECTAL SUPP RC PRN (03:43)
[2020-04-04] MEDS: *HR* Heparin 5,000 UNIT/ML VIAL SQ SCH ×3 (06:44→22:15)
[2020-04-04 07:11] LABS: Basophils % 0.3 %; Eosinophils # 0.1 K/mcL (0.0-0.6); Eosinophils % 0.8 %; Hematocrit 29.7 % (35.3-44.9); Hemoglobin 9.5 g/dL (11.5-15.4); Immature Granulocytes % 0.4 % (0-4); Lymphocytes # 1.3 K/mcL (0.6-4.6); Lymphocytes % 11.7 %; Mean Corpuscular Hemoglobin 27.1 pg (28.0-33.3); Mean Corpuscular Volume 84.9 fL (83.0-100.0); Mean Platelet Volume 9.9 fL (9.4-12.4); Monocytes # 0.6 K/mcL (0.0-1.3); Monocytes % 5.4 %; Neutrophils # 8.9 K/mcL (1.6-8.9); Platelet Count 274 K/mcL (140-400); Red Cell Distribution Width 14.4 % (11.5-14.5); Segmented Neutrophils % 81.4 %; White Blood Count 10.9 K/mcL (4.3-11.1)
[2020-04-04 07:35] LABS: Albumin 3.5 g/dL (3.5-5.7); Bilirubin,Total 0.5 mg/dL (0.3-1.0); Calcium 9.7 mg/dL (8.6-10.3); Globulin 3.4 g/dL (2.4-3.5); Total Protein 6.9 g/dL (6.4-8.9)
[2020-04-04] MEDS: Insulin LISPRO 300 UNITS/3 ML VIAL SUBQ SCH ×4 (07:44→22:16)
[2020-04-04] MEDS: Aspirin Enteric Coated 81 MG Tablet PO SCH (08:13)
[2020-04-04] MEDS: cloNIDine HCL 0.1 MG TABLET PO SCH ×2 (08:13→22:15)
[2020-04-04] MEDS: Sennosides/Docusate Sodium TABLET PO SCH ×2 (08:13→22:14)
[2020-04-04] MEDS: carvediloL 25 MG TABLET PO SCH ×2 (08:13→18:06)
[2020-04-04] MEDS: Insulin DETEMIR 100 UNIT/ML X5UNITS SUBQ SCH ×2 (08:13→22:15)
[2020-04-04] MEDS: Cholecalciferol (D-3) 1,000 UNIT (25MCG) TABLET PO SCH (08:13)
[2020-04-04] MEDS: amLODIPine 5 MG TABLET PO SCH (08:13)
[2020-04-04] MEDS: Isosorbide MONOnitrate (24 HR) 60 MG TAB.ER.24H PO SCH (08:13)
[2020-04-04] MEDS ORDERED: levoFLOXacin 750 MG/150 ML 750 MG/150 ML BAG IVPB SCH (11:00)
[2020-04-04] MEDS ORDERED: 0.9 % Sodium Chloride 1,000 ML IVC ONE (11:18)
[2020-04-04] MEDS: Nystatin POWDER 30 GM BOTTLE TP SCH ×2 (12:07→22:17)
[2020-04-04] MEDS: Gentamicin Oint 15 GM TUBE TP SCH ×2 (12:07→22:17)
[2020-04-04 14:20] LABS: Bilirubin,Urine Negative (Negative); Blood,Urine Small (Negative); Clarity,Urine Clear (Clear); Color,Urine Yellow (Yellow); Glucose,Urine (UA) Normal (Normal); Ketones,Urine Negative (Negative); Leukocyte Esterase,Urine Trace (Negative); Nitrite,Urine Negative (Negative); PH,Urine 5.5 pH Units (5.0-8.0); Protein,Urine 100 mg/dL (Neg-Trace); Specific Gravity,Urine 1.015 (1.010-1.025); Urobilinogen,Urine Normal (Normal)
[2020-04-04 14:29] LABS: Bacteria,Urine Few per hpf (None-Few); RBC,Urine 0-3 per hpf (0-3); Squamous Epithelial Cell,Urine Few per hpf (None-Few); WBC,Urine 15-30 per hpf (0-3)
[2020-04-04] MEDS ORDERED: Gadolinium Contrast Agent (WT Based) IV PRN (16:45)
[2020-04-04] MEDS: Pregabalin 75 MG CAPSULE PO SCH (22:15)
[2020-04-05] MEDS: *HR* Heparin 5,000 UNIT/ML VIAL SQ SCH ×3 (06:57→20:02)
[2020-04-05] MEDS: Insulin LISPRO 300 UNITS/3 ML VIAL SUBQ SCH ×4 (07:21→19:52)
[2020-04-05] MEDS: carvediloL 25 MG TABLET PO SCH ×2 (09:07→17:12)
[2020-04-05] MEDS: cloNIDine HCL 0.1 MG TABLET PO SCH ×2 (09:07→19:50)
[2020-04-05] MEDS: Cholecalciferol (D-3) 1,000 UNIT (25MCG) TABLET PO SCH (09:07)
[2020-04-05] MEDS: amLODIPine 5 MG TABLET PO SCH (09:07)
[2020-04-05] MEDS: Isosorbide MONOnitrate (24 HR) 60 MG TAB.ER.24H PO SCH (09:07)
[2020-04-05] MEDS: Aspirin Enteric Coated 81 MG Tablet PO SCH (09:07)
[2020-04-05] MEDS: Nystatin POWDER 30 GM BOTTLE TP SCH ×2 (09:08→19:53)
[2020-04-05] MEDS: Gentamicin Oint 15 GM TUBE TP SCH ×2 (09:09→19:53)
[2020-04-05] MEDS: Sennosides/Docusate Sodium TABLET PO SCH ×2 (09:16→19:51)
[2020-04-05] MEDS: Insulin DETEMIR 100 UNIT/ML X5UNITS SUBQ SCH ×2 (09:16→19:52)
[2020-04-05] MEDS: Pregabalin 75 MG CAPSULE PO SCH (20:02)
[2020-04-05 20:07] LABS: SARS-CoV-2 by NAA Not Detected (Not Detected)
[2020-04-06] MEDS: *HR* Heparin 5,000 UNIT/ML VIAL SQ SCH ×3 (05:30→19:56)
[2020-04-06 07:13] LABS: Basophils % 0.4 %; Eosinophils # 0.5 K/mcL (0.0-0.6); Eosinophils % 6.1 %; Hematocrit 29.3 % (35.3-44.9); Hemoglobin 9.4 g/dL (11.5-15.4); Immature Granulocytes % 0.2 % (0-4); Lymphocytes # 1.3 K/mcL (0.6-4.6); Lymphocytes % 15.2 %; Mean Corpuscular HGB Conc 32.1 g/dL (31.6-35.5); Mean Corpuscular Hemoglobin 27.2 pg (28.0-33.3); Mean Corpuscular Volume 84.7 fL (83.0-100.0); Mean Platelet Volume 9.4 fL (9.4-12.4); Monocytes # 0.7 K/mcL (0.0-1.3); Monocytes % 8.6 %; Neutrophils # 5.8 K/mcL (1.6-8.9); Platelet Count 253 K/mcL (140-400); Red Blood Count 3.46 M/mcL (3.82-4.97); Red Cell Distribution Width 14.6 % (11.5-14.5); Segmented Neutrophils % 69.5 %; White Blood Count 8.4 K/mcL (4.3-11.1)
[2020-04-06 07:24] LABS: Calcium 9.2 mg/dL (8.6-10.3); Potassium 4.2 mEq/L (3.5-5.1)
[2020-04-06] MEDS: Insulin LISPRO 300 UNITS/3 ML VIAL SUBQ SCH ×4 (07:43→19:57)
[2020-04-06] MEDS: Cholecalciferol (D-3) 1,000 UNIT (25MCG) TABLET PO SCH (09:19)
[2020-04-06] MEDS: carvediloL 25 MG TABLET PO SCH ×2 (09:19→17:08)
[2020-04-06] MEDS: amLODIPine 5 MG TABLET PO SCH (09:19)
[2020-04-06] MEDS: cloNIDine HCL 0.1 MG TABLET PO SCH ×2 (09:19→19:55)
[2020-04-06] MEDS: Isosorbide MONOnitrate (24 HR) 60 MG TAB.ER.24H PO SCH (09:19)
[2020-04-06] MEDS: Sennosides/Docusate Sodium TABLET PO SCH ×2 (09:19→19:56)
[2020-04-06] MEDS: Aspirin Enteric Coated 81 MG Tablet PO SCH (09:19)
[2020-04-06] MEDS: Insulin DETEMIR 100 UNIT/ML X5UNITS SUBQ SCH ×2 (09:22→19:54)
[2020-04-06] MEDS: Nystatin POWDER 30 GM BOTTLE TP SCH ×2 (09:23→19:57)
[2020-04-06] MEDS: Gentamicin Oint 15 GM TUBE TP SCH ×2 (09:23→19:58)
[2020-04-06] MEDS: levoFLOXacin 500 MG/100 ML 500 MG/100 ML BAG IVPB SCH (14:12)
[2020-04-06] MEDS: Pregabalin 75 MG CAPSULE PO SCH (19:56)
[2020-04-07] MEDS: *HR* Heparin 5,000 UNIT/ML VIAL SQ SCH ×3 (05:26→23:32)
[2020-04-07] MEDS: Insulin LISPRO 300 UNITS/3 ML VIAL SUBQ SCH ×4 (08:44→23:33)
[2020-04-07] MEDS: Insulin DETEMIR 100 UNIT/ML X5UNITS SUBQ SCH ×2 (10:00→23:32)
[2020-04-07] MEDS: Aspirin Enteric Coated 81 MG Tablet PO SCH (10:00)
[2020-04-07] MEDS: carvediloL 25 MG TABLET PO SCH ×2 (10:00→18:03)
[2020-04-07] MEDS: Isosorbide MONOnitrate (24 HR) 60 MG TAB.ER.24H PO SCH (10:00)
[2020-04-07] MEDS: Cholecalciferol (D-3) 1,000 UNIT (25MCG) TABLET PO SCH (10:00)
[2020-04-07] MEDS: Sennosides/Docusate Sodium TABLET PO SCH ×2 (10:00→23:32)
[2020-04-07] MEDS: cloNIDine HCL 0.1 MG TABLET PO SCH ×2 (10:00→23:31)
[2020-04-07] MEDS: Gentamicin Oint 15 GM TUBE TP SCH (12:32)
[2020-04-07] MEDS: Nystatin POWDER 30 GM BOTTLE TP SCH ×2 (12:33→23:38)
[2020-04-07] MEDS: MetroNIDAZOLE 500 MG/100 ML 500 MG/100 ML BAG IVPB SCH ×2 (12:35→18:03)
[2020-04-07] MEDS: amLODIPine 5 MG TABLET PO SCH (12:47)
[2020-04-07] MEDS: Pregabalin 75 MG CAPSULE PO SCH (23:31)
[2020-04-08] MEDS: MetroNIDAZOLE 500 MG/100 ML 500 MG/100 ML BAG IVPB SCH ×3 (01:27→17:38)
[2020-04-08] MEDS: *HR* Heparin 5,000 UNIT/ML VIAL SQ SCH ×3 (06:49→22:54)
[2020-04-08] MEDS: Gentamicin Oint 15 GM TUBE TP SCH ×2 (06:54→13:00)
[2020-04-08] MEDS: Insulin LISPRO 300 UNITS/3 ML VIAL SUBQ SCH ×7 (07:53→22:53)
[2020-04-08] MEDS: Isosorbide MONOnitrate (24 HR) 60 MG TAB.ER.24H PO SCH (08:11)
[2020-04-08] MEDS: carvediloL 25 MG TABLET PO SCH ×2 (08:12→17:42)
[2020-04-08] MEDS: amLODIPine 5 MG TABLET PO SCH (08:12)
[2020-04-08] MEDS: Aspirin Enteric Coated 81 MG Tablet PO SCH (08:12)
[2020-04-08] MEDS: Cholecalciferol (D-3) 1,000 UNIT (25MCG) TABLET PO SCH (08:12)
[2020-04-08] MEDS: cloNIDine HCL 0.1 MG TABLET PO SCH ×2 (08:13→22:52)
[2020-04-08] MEDS: Insulin DETEMIR 100 UNIT/ML X5UNITS SUBQ SCH ×2 (11:27→22:53)
[2020-04-08] MEDS: Sennosides/Docusate Sodium TABLET PO SCH ×2 (11:34→22:54)
[2020-04-08] MEDS: Nystatin POWDER 30 GM BOTTLE TP SCH ×2 (15:32→22:55)
[2020-04-08] MEDS: levoFLOXacin 500 MG/100 ML 500 MG/100 ML BAG IVPB SCH (15:33)
[2020-04-08] MEDS: Pregabalin 75 MG CAPSULE PO SCH (22:51)
[2020-04-09] MEDS ORDERED: Milk and Molasses Enema 200 ML RC ONE (00:42)
[2020-04-09] MEDS: MetroNIDAZOLE 500 MG/100 ML 500 MG/100 ML BAG IVPB SCH ×2 (01:34→09:17)
[2020-04-09] MEDS: *HR* Heparin 5,000 UNIT/ML VIAL SQ SCH (06:34)
[2020-04-09] MEDS: Ondansetron ODT 4 MG TAB.RAPDIS SL PRN (06:35)
[2020-04-09 06:41] VITALS: BP 139/68
[2020-04-09] MEDS: Aspirin Enteric Coated 81 MG Tablet PO SCH (09:18)
[2020-04-09] MEDS: Insulin DETEMIR 100 UNIT/ML X5UNITS SUBQ SCH (09:18)
[2020-04-09] MEDS: Isosorbide MONOnitrate (24 HR) 60 MG TAB.ER.24H PO SCH (09:18)
[2020-04-09] MEDS: amLODIPine 5 MG TABLET PO SCH (09:18)
[2020-04-09] MEDS: cloNIDine HCL 0.1 MG TABLET PO SCH (09:18)
[2020-04-09] MEDS: Cholecalciferol (D-3) 1,000 UNIT (25MCG) TABLET PO SCH (09:18)
[2020-04-09] MEDS: carvediloL 25 MG TABLET PO SCH (09:18)
[2020-04-09] MEDS: Sennosides/Docusate Sodium TABLET PO SCH (09:18)
[2020-04-09] MEDS: Nystatin POWDER 30 GM BOTTLE TP SCH (09:20)
[2020-04-09] MEDS: Insulin LISPRO 300 UNITS/3 ML VIAL SUBQ SCH ×2 (09:24→09:25)
== END 2020-04-09 13:07 | disposition short-term general hospital (02) | DRG 57 ==
LOC: INPPIK 14:51
PROVIDERS: ADMIT Family Medicine; ATTEND Family Medicine